=== PATIENT | male | born 1945 | race Caucasian/White ===

== ENCOUNTER 2016-11-24 10:06 | Observation (INO) | payer OTHER ==
[2016-11-24] MEDS ORDERED: ASPIRIN 81 MG CHEWABLE TAB ONE (10:16)
--- NOTE | 2016-11-24 10:17 | CPEKG ---
Heart Rate: 77 RR Interval: 779 P-R Interval: 212 QRSD Interval: 100 QT Interval: 408 QTC Interval: 462 P [place]: 53 QRS [place]: 5 T Wave [place]: 3 EKG Severity - BORDERLINE ECG - EKG Impression: SINUS RHYTHM EKG Impression: PROBABLE LEFT ATRIAL ABNORMALITY Electronically Signed By: Kay Rodriguez 24-Nov-2016 13:18:59
[2016-11-24] MEDS ORDERED: ASPIRIN 81 MG CHEWABLE TAB PO ONE (10:21)
[2016-11-24] MEDS ORDERED: NITROGLYCERIN 0.4 MG BTL SL ONE (10:24)
[2016-11-24 10:26] LABS: % IMMATURE GRANULYOCYTES 0.2 % (0.0-1.1); ABSOLUTE IMMATURE GRANULOCYTES 0.01 10^3/uL (0.00-0.10); ADD DIFF? NO; ADD MORPH? NO; ADD SCAN? NO; ATYPICAL LYMPHOCYTE FLAG 0 (0-99); FRAGMENT RBC FLAG 0 (0-99); HEMATOCRIT 48.1 % (40.0-51.0); HEMOGLOBIN 16.8 g/dL (13.7-17.5); LEFT SHIFT FLG 0 (0-99); LIPEMIA HEMOLYSIS FLAG 90 (0-99); MEAN CELL HEMOGLOBIN 29.9 pg (27.9-34.1); MEAN CELL HEMOGLOBIN CONCENTR. 34.9 g/dL (32.4-36.7); MEAN CELL VOLUME 85.6 fL (81.5-99.8); MEAN PLATELET VOLUME 9.1 fL (8.7-11.7); PLATELET CLUMPS FLAG 0 (0-99); PLATELET COUNT 199 10^3/uL (150-400); RED BLOOD CELL COUNT 5.62 10^6/uL (4.40-6.38); RED CELL DISTRIBUTION WIDTH 12.6 % (11.5-15.2)
[2016-11-24] MEDS: NITROGLYCERIN 0.4 MG BTL SL PRN ×3 (10:28→10:53)
[2016-11-24] MEDS ORDERED: FAMOTIDINE 20 MG in NS 100 ML IV ONE (10:29)
--- NOTE | 2016-11-24 10:35 | EDPHY ---
H & P Stated Complaint: 3 DAYS SUBSTRENAL CHEST BURNING OFF AN ON STARTING W ACTVITY Time Seen by Provider: 11/24/16 10:16 HPI/ROS: CHIEF COMPLAINT:Chest pain HISTORY OF PRESENT ILLNESS: this is a 71-year-old male with a history of hypertension who presents with 3 days of intermittent burning substernal chest pressure. He has noticed this while walking over the last 3 days. However, this morning the pain became constant. He is also complaining of left arm pain. He feels "hot". He does not feel short of breath. He has not had nausea. Four years ago he was evaluated after he failed an exercise treadmill test. At that time there was some concern about ventricular tachycardia. He worea patient monitor for a month and no cardiac arrhythmia was diagnosed. Coronary angiography was performed in January of 2013 and was reportedly normal ( per his ). He also wore a monitor after a syncopal episode about 2 years ago , again with no abnormalities discovered. REVIEW OF SYSTEMS: A ten point review of systems was performed and is negative with the exception of the items mentioned in the HPI. - Personal History Current Tetanus/Diphtheria Vaccine: Yes - Medical/Surgical History PMH: 1. Hypertension 2. Fibromyalgia, no medications 3. Sleep apnea, uses CPAP 4. Gout 5. Status post uvulectomy 6. 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 He is here with his . - Physical Exam Exam: General Appearance: Alert. Vital signs reviewed. Blood pressure 190/101 on arrival. Eyes: Pupils equal and round, no conjunctival injection, no discharge. Anicteric. ENT, Mouth: Mucous membranes are moist, no oropharyngeal erythema or edema. Neck: No lymphadenopathy, supple. Respiratory: Lungs are clear to auscultation; no wheezes, rales, or rhonchi. Cardiovascular: Regular rate and rhythm; no murmur, rub, or gallop. Gastrointestinal: Abdomen is soft and nontender, no masses or organomegaly, bowel sounds normal. Skin: Warm and dry, no rashes on exposed skin, normal color. Back: Nontender to palpation over the thoracolumbar spine. No CVAT. Extremities: No lower extremity edema, no calf tenderness or swelling. Neurological: Alert and oriented. Moving all four extremities easily and equally. Psychiatric: Normal affect. Constitutional: Initial Vital Signs Temperature (C) 36.5 C 11/24/16 10:15 Heart Rate 79 11/24/16 10:15 Respiratory Rate 18 11/24/16 10:15 Blood Pressure 190/101 H 11/24/16 10:15 O2 Sat (%) 92 11/24/16 10:15 O2 Delivery Mode Nasal Cannula O2 (L/minute) 2 Allergies/Adverse Reactions: No Known Allergies Allergy (Verified 11/24/16 10:15) Home Medications: Medication Instructions Recorded ASPIRIN 11/24/16 Aller Alex 11/24/16 Amlodipine Besylate 11/24/16 Colchicine 11/24/16 Fish Oil 11/24/16 KLONOPIN 11/24/16 Levothyroxine 11/24/16 Losartan Potassium 11/24/16 Multivitamin 11/24/16 Medical Decision Making - Diagnostics EKG Interpretation: 12 lead EKG is interpreted in Trace master View by emergency department physician. Repeat 12 lead EKG interpreted by me. No acute ischemic changes. Sinus rhythm. Imaging Results: Imaging Impressions Chest X-Ray 11/24/16 10:28 Impression: Right thoracic inlet mass. Consider chest CT with IV contrast for further evaluation. Results discussed with Dr. Rodriguez at 11:28 AM. ED Course/Re-evaluation: 71-year-old male with history of hypertension who presents with substernal chest pain and left arm pain. He is hypertensive on arrival. EKG performed immediately on his arrival. It shows a sinus rhythm with a rate of 77. There is prep some mild ST depression in leads V3 through V5. he was given aspirin on arrival. He received sublingual nitroglycerin with some improvement in his pain. He rated his pain is an 8/10 on arrival, 6/10 after aspirin and 1 sublingual nitroglycerin. Blood pressure was improved after nitroglycerin. Labs and chest x-ray pending. Troponin slightly elevated at 0.04. I reviewed the report of his coronary angiogram from 2012. He did have diffuse plaques at that time. No intervention. He has been regularly examined while in the emergency department. After 3 sublingual nitroglycerin he rates his chest pain is a 4 to 5/10. He states that he feels weak. blood pressure 127/76 at 11:00 a.m. I spoke with Dr. Travis Pompa of Cardiology. Cardiac catheterization is recommended. Dr. Pompa has asked that the hospitalists be the admitting service and I have spoken with the hospitalist service. Patient is being transferred by ambulance from [facility] to [facility]. A bed request for the PCU has been made. He will either go directly to CV or to his hospital bed prior to cardiac catheterization. I have discussed these plans with the patient and his . A 2nd EKG was obtained at 11:05 a.m.. Sinus rhythm with a rate of 68. No acute ischemic changes. I was contacted by Dr. José Vance, radiology, who reports a right thoracic inlet mass seen on chest x-ray. CT angiogram recommended. I am proceeding with CT angiogram at [facility] in order to further assess this chest x-ray finding. It is important to know whether not this is aneurysmal/vascular. CT angiogram is been completed at 11:50 a.m.. Awaiting report of CTA prior to ambulance transfer. Paramedics are present in the emergency department at this time. The patient remains unchanged. 12 15: Preliminary CT angiogram report from Dr. Vance via telephone. He sees triple-vessel coronary disease. There is some thinning of the lateral wall of the left ventricle, causing him to question whether there might be a subendocardial infarct. There is no effusion , no pulmonary embolus. The mass that was seen on chest x-ray is related to a tortuous subclavian vessel. There is no aortic aneurysm or dissection. The patient is being transferred to [facility]. He is in unchanged condition. His blood pressure and heart rate have been stable. He continues to complain of upper extremity weakness and some chest discomfort. It is my impression that his pain is cardiac, evidence of an acute coronary syndrome. Differential Diagnosis: Chest pain including but not limited to myocardial ischemia, pulmonary embolus, chest wall pain, pleural inflammation and pulmonary infectious causes. - Data Points Laboratory Results: Laboratory Results 11/24/16 10:15 11/24/16 10:15 11/24/16 11/24/16 10:15 10:15 WBC 5.39 10^3/uL 10^3/uL (3.80-9.50) RBC 5.62 10^6/uL 10^6/uL (4.40-6.38) Hgb 16.8 g/dL g/dL (13.7-17.5) Hct 48.1 % % (40.0-51.0) MCV 85.6 fL fL (81.5-99.8) MCH 29.9 pg pg (27.9-34.1) MCHC 34.9 g/dL g/dL (32.4-36.7) RDW 12.6 % % (11.5-15.2) Plt Count 199 10^3/uL 10^3/uL (150-400) MPV 9.1 fL fL (8.7-11.7) Neut % (Auto) 56.5 % % (39.3-74.2) Lymph % (Auto) 30.1 % % (15.0-45.0) [place] % (Auto) 9.5 % % (4.5-13.0) Eos % (Auto) 2.8 % % (0.6-7.6) Baso % (Auto) 0.9 % % (0.3-1.7) Nucleat RBC Rel Count 0.0 % % (0.0-0.2) Absolute Neuts (auto) 3.05 10^3/uL 10^3/uL (1.70-6.50) Absolute Lymphs (auto) 1.62 10^3/uL 10^3/uL (1.00-3.00) Absolute Monos (auto) 0.51 10^3/uL 10^3/uL (0.30-0.80) Absolute Eos (auto) 0.15 10^3/uL 10^3/uL (0.03-0.40) Absolute Basos (auto) 0.05 10^3/uL 10^3/uL (0.02-0.10) Absolute Nucleated RBC 0.00 10^3/uL 10^3/uL (0-0.01) Immature Gran % 0.2 % % (0.0-1.1) Immature Gran # 0.01 10^3/uL 10^3/uL (0.00-0.10) Sodium 142 mEq/L mEq/L (134-144) Potassium 3.9 mEq/L mEq/L (3.5-5.2) Chloride 103 mEq/L mEq/L (97-110) Carbon Dioxide 23 mEq/l mEq/l (22-31) Anion Gap 16 mEq/L mEq/L (8-16) BUN 15 mg/dL mg/dL (7-23) Creatinine 0.7 mg/dL mg/dL (0.7-1.3) Estimated GFR > 60 Glucose 107 mg/dL H mg/dL (70-100) Calcium 9.1 mg/dL mg/dL (8.5-10.4) Total Bilirubin 0.5 mg/dL mg/dL (0.1-1.4) AST 35 IU/L IU/L (17-59) ALT 57 IU/L IU/L (21-72) Alkaline Phosphatase 67 IU/L IU/L (38-126) Troponin I 0.046 ng/mL H ng/mL (0-0.034) Total Protein 7.9 g/dL g/dL (6.3-8.2) Albumin 4.7 g/dL g/dL (3.5-5.0) Medications Given: Discontinued Medications Aspirin (Aspirin) 324 mg PO EDNOW ONE Stop: 11/24/16 10:22 Last Admin: 11/24/16 10:22 Dose: 324 mg Famotidine 20 mg/ Sodium (Chloride) 102 mls @ 408 mls/hr IV EDNOW ONE Stop: 11/24/16 10:43 Last Admin: 11/24/16 10:35 Dose: 102 mls Departure - Departure Disposition: [facility] Inpatient Acute Clinical Impression: Acute coronary syndrome Chest pain Qualifiers: Chest pain type: chest pain due to myocardial ischemia Ischemic chest pain type : unstable angina pectoris Qualified Code(s): I20.0 - Unstable angina Condition: Fair
[2016-11-24 10:44] LABS: ALANINE AMINOTRANSFERASE 57 IU/L (21-72); ALBUMIN 4.7 g/dL (3.5-5.0); ALKALINE PHOSPHATASE 67 IU/L (38-126); ASPARTATE AMINOTRANSFERASE 35 IU/L (17-59); BILIRUBIN,TOTAL 0.5 mg/dL (0.1-1.4); CALCIUM 9.1 mg/dL (8.5-10.4); CARBON DIOXIDE 23 mEq/l (22-31); CHLORIDE 103 mEq/L (97-110); CREATININE 0.7 mg/dL (0.7-1.3); GLOMERULAR FILTRATION RATE > 60; GLUCOSE 107 mg/dL (70-100); POTASSIUM 3.9 mEq/L (3.5-5.2); TOTAL PROTEIN 7.9 g/dL (6.3-8.2)
[2016-11-24 10:55] LABS: TROPONIN I 0.046 ng/mL (0-0.034)
--- NOTE | 2016-11-24 11:07 | CPEKG ---
Heart Rate: 68 RR Interval: 882 P-R Interval: 216 QRSD Interval: 98 QT Interval: 420 QTC Interval: 447 P [place]: 45 QRS [place]: -4 T Wave [place]: 9 EKG Severity - NORMAL ECG - EKG Impression: SINUS RHYTHM Electronically Signed By: Kay Rodriguez 24-Nov-2016 13:18:50
[2016-11-24 11:09] LABS: ANION GAP 16 mEq/L (8-16); SODIUM 142 mEq/L (134-144)
[2016-11-24] MEDS ORDERED: IOPAMIDOL (ISOVUE 370) 100 ML BTL IV ONE (11:38)
[2016-11-24 13:38] LABS: INR 0.97 (0.83-1.16); PROTIME(PATIENT) 12.8 SEC (12.0-15.0)
[2016-11-24] MEDS ORDERED: LIDOCAINE 1% 300 MG/30 ML SDV ONE (14:01)
[2016-11-24] MEDS ORDERED: ACETAMINOPHEN 325 MG TAB PO PRN ×2 (14:01→14:16)
[2016-11-24] MEDS ORDERED: TEMAZEPAM 15 MG CAP PO PRN (14:01)
[2016-11-24] MEDS ORDERED: diphenhydrAMINE 25 MG CAP PO ONE (14:01)
[2016-11-24] MEDS ORDERED: ASPIRIN EC 325 MG TAB PO ONE (14:01)
[2016-11-24] MEDS ORDERED: DIAZEPAM 5 MG TAB PO ONE (14:01)
[2016-11-24] MEDS ORDERED: NITROGLYCERIN 0.4 MG BTL SL PRN (14:01)
[2016-11-24] MEDS ORDERED: IOPAMIDOL (ISOVUE-370) 150 ML BTL IV ONE ×2 (14:02→14:44)
[2016-11-24] MEDS ORDERED: fentaNYL 100 MCG/2 ML INJ ONE (14:02)
[2016-11-24] MEDS ORDERED: MIDAZOLAM 2 MG/2 ML VIAL ONE (14:02)
[2016-11-24] MEDS ORDERED: ONDANSETRON DISINTEGRATING 4 MG TAB PO PRN (14:16)
[2016-11-24] MEDS ORDERED: ONDANSETRON 4 MG/2 ML VIAL IVP PRN (14:16)
[2016-11-24 14:18] LABS: AMYLASE 40 IU/L (30-110)
[2016-11-24] MEDS ORDERED: clonazePAM 0.5 MG TAB PO PRN (14:18)
[2016-11-24] MEDS ORDERED: NS 1,000 ML IV SCH (14:30)
[2016-11-24] MEDS ORDERED: BIVALIRUDIN 250 MG/5 ML VIAL IV ONE (14:50)
[2016-11-24] MEDS ORDERED: NITROGLYCERIN 1,500 MCG/15 ML VIAL MISC ONE (14:50)
--- NOTE | 2016-11-24 14:51 | GHP ---
[f rep st] HISTORY AND PHYSICAL DATE OF ADMISSION: 11/24/2016 CHIEF COMPLAINT: Chest pain. HISTORY OF PRESENT ILLNESS: This is a 71-year-old male with a history of hypertension, who has had 3 days of chest pressure. This would come on with exertion, with walking. It did get better at res t, but then this morning had pain and it continued. He denied any shortness of breath. No nausea. He did feel hot today and had to go outside. No cough. He did have an angiogram about 4 years ago , which did not show any actionable blockages. REVIEW OF SYSTEMS: A 10-point review of systems was obtained, other than stated was negative. PAST MEDICAL HISTORY: 1. Hypertension. 2. Fibromyalgia. 3. Obstructive sleep apnea. 4. Gout. SOCIAL HISTORY: No smoking. Occasional alcohol. FAMILY HISTORY: Father of a heart attack at age 59. PHYSICAL EXAM: VITAL SIGNS: Afebrile, blood pressure is 156/84, heart rate 76, oxygen saturation 1 00% on 2 L. GENERAL: The patient is well developed, no apparent distress. HEENT: Nonicteric scle leonarda. Extraocular muscles intact. Moist mucous membranes. NECK: Supple. No thyromegaly. LUNGS: Good effort. Clear to auscultation bilaterally. CARDIOVASCULAR: Regular rate and rhythm. No mur murs, rubs, or gallops. ABDOMEN: Positive bowel sounds. Soft, nontender, nondistended. No hepato splenomegaly. EXTREMITIES: No clubbing, cyanosis, or edema. SKIN: Without rash. Warm, dry, and i ntact. NEUROLOGIC: Alert and oriented x3. Moving all 4 extremities equally PSYCH: Normal affect. LABS: CBC is normal. Coag's are normal. Troponin is elevated at 0.046, CT of the chest does show triple vessel disease. No PE. EKG personally reviewed and interpreted does show some ST-segment de pressions in V2 through V4, but they resolved an hour later. ASSESSMENT: This is a 71-year-old male presenting with probable acute coronary syndrome. PLAN: 1. Probable acute coronary syndrome. The patient is going to the lab assistant currently. We will see what they find. 2. Fibromyalgia. 3. Hypertension. We will continue his medicines for now. Perhaps amlodipine will be switched over to a beta cynthia if he indeed has coronary disease. 4. Admission. The patient will be admitted under observation status. Case discussed with the ER shirley bush. Old records reviewed and summarized in the HPI. EKG and chest x-ray personally reviewed and interpreted. /[id number]/MODL
--- NOTE | 2016-11-24 15:06 | GCON ---
[f rep st] CONSULTATION CARDIOVASCULAR CONSULTATION CHIEF COMPLAINT: Chest discomfort. HISTORY OF PRESENT ILLNESS: The patient is a gentleman I know well who comes in today now with anterior chest discomfort. It has been bothering him a great deal, and he is now here for further evaluation. Three days in a row when he was walking with his at a casual pace, he developed burning in the center of his chest. He also had another feeling that was a funny feeling in his chest. He called the office to get an appointment and was given an appointment with Dr. Perdue. Then what happened this morning at 4:30 in the morning, he woke and had significant burning in the chest, and it hurt in his left arm as well. It was 6/10 to 8/10. He was able to go back to sleep. An hour later he woke up with the pain being 6/10 as well. He wandered around the house. It was a real burning. It was bothering him. He had breakfast with his . He started feeling warm about 7:30 in the morning and then the pain got to be 10/10 , so he went to the [facility]. He did not have associated shortness of breath, sweaty feelings, palpitations, nausea, vomiting, diarrhea, or constipation. No pleuritic pain at all. He has not had fever, chills, or cough. He has not had upper respiratory tract symptoms of dysuria or frequency. He has not had dysuria or pain when he urinates or pain in the flank. He has a lifetime history of fibromyalgia, which is a muscular pain throughout his body. It is very bothersome. It hurts him a great deal. He has his fibromyalgia pains but that is different from this pain today. He has not had tearing pain. He has not had pressure or heaviness. He has not had pain radiating into his back. He has not had these kinds of pains before. He has a lot of other types of pains. In 2012, four years ago, he went 9 minutes on a treadmill and developed ventricular tachycardia. 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 He was followed up with Dr. Bertrand, his doctor, and then 2 years later had an episode where he fainted. They did Holter monitors many times and month-long monitors and never found anything abnormal, and he has not had any further syncope. Cardiac risk factors are positive for being overweight, having diabetes, hypertension, and dyslipidemia. He has a history of hyperuricemia. He also has a family history of premature coronary disease. His cardiac risk factors are negative for smoking. He does not have significant coronary disease on a catheterization 4 years ago, according to him. PAST MEDICAL HISTORY: He has significant sleep apnea. He has had surgery for that. He is using buds in his nose for that. He continues to snore very loudly if he takes a nap during the day. We do not know if he snores at night because he and his sleep in different locations. Surgical history includes also the rotator cuff surgery. He has had a cyst removed. He has had surgery for the sleep apnea. MEDICATIONS: At home: Aspirin, amlodipine, colchicine, Klonopin, levothyroxine , losartan, and multivitamins. ALLERGIES: Not listed. REVIEW OF SYSTEMS: Negative except as noted above a 12-point review of systems. FAMILY HISTORY: Family history is positive for premature coronary disease with a brother who had a myocardial infarction at 45. No family history of unexplained sudden at a young age. PHYSICAL EXAMINATION: VITAL SIGNS: Blood pressure 110/70, heart rate 66, respiratory rate 12. He is afebrile sitting comfortably in a hospital bed. HEENT: Pupils equal and reactive. Mucous membranes: Mouth moist. NECK: Supple. CARDIOVASCULAR: S1, S/. Soft systolic murmur left sternal border. No diastolic murmur. No S3, S4. No rubs. PULMONARY: Rhonchi. No rales, wheezing, or dullness. CVA: No tenderness. ABDOMEN: Soft, nontender without organomegaly. EXTREMITIES: No edema, inflammation, or ulceration. SKIN: Age- related changes. PSYCH: No obvious anxiety or depression. NEUROLOGIC: 2 through 12 grossly normal. Motor and sensory intact. IMAGING: The patient had an abnormal chest x-ray. He had then a CT scan done at the recommendation of our friends in Radiology. That CT scan was negative for a pulmonary embolism, aortic aneurysm, or dissection. Chest x-ray showed right thoracic inlet mass. Consider chest CT. EKG shows sinus rhythm with nonspecific ST-T changes. There are T-wave inversions in lead III. LAB: INR 0.97. White count 5.39, hematocrit 48, platelets 199. Sodium 142, potassium 3.9, chloride 103, CO2 of 23, BUN 15, creatinine 0.7, glucose 107. Troponin 0.046. Amylase and lipase negative ASSESSMENT AND PLAN: 1. Chest pain. The patient has significant chest discomfort worse with exertion, and now we are going to coronary angiography to look and see if he has obstructive disease causing these symptoms. I have offered him noninvasive testing, but he and his both want to have a definitive answer, and they know the risk of catheterization, and we will proceed to angiography. In terms of the differential diagnosis, there is nothing to suggest pulmonary embolic disease, and the CT scan did not show that. Nothing to suggest disease of the great vessels. Pulses are full and equal, and again, the CT scan did not show disease of the great vessels. He does have fibromyalgia. He has severe musculoskeletal symptoms and that could be contributing to some of his symptoms even if he has significant obstructive coronary disease. There is nothing to suggest major gastrointestinal pathology, and he does have negative amylase and lipase so far and does not have significant anemia, so there is nothing pointing toward significant pancreatitis or GI bleeding. We will watch him very closely and make sure that he gets over this hump, and then we will keep working on prevention. I have already talked to him extensively about some of his other problems and secondary prevention. 2. Sleep apnea. He needs to follow up on this and make sure he is getting the right treatment, and we have discussed this. 3. Dyslipidemia. We will follow his lipids and see how they are, but they will probably have to be managed as an outpatient. 4. Hyperuricemia. He is not having gout right this minute, but he is aware of it and watches it all the time. 5. Family history of premature coronary disease. 6. Obesity. He will have to watch carefully on his weight. 7. Hypertension. He came in hypertensive. We need to watch his blood pressure. We want his blood pressure to be below 135/85. I have answered all their questions. They would like to proceed now, and we will get our test done. /[id number]/MODL MTDD
[2016-11-24] MEDS ORDERED: CLOPIDOGREL BISULFATE 75 MG TAB ONE (15:14)
[2016-11-24] MEDS ORDERED: ATROPINE SULFATE 1 MG/10 ML SYR IVP PRN (15:39)
[2016-11-24] MEDS ORDERED: CLOPIDOGREL BISULFATE 75 MG TAB PO ONE (15:39)
--- NOTE | 2016-11-24 15:39 | PDCTREPORT ---
Cardiothoracic Procedure Rpt Cardiothoracic Procedure Report: Procedure: PCI and stenting of the ramus intermedius in the setting of a non ST segment elevation myocardial infarction. Indications: 71-year-old male brought to the cardiac catheterization lab by my partner for a non ST segment elevation myocardial infarction. Diagnostic angiograms reveal a thrombotic occlusion of ramus intermedius. I am asked by my partner to perform PCI. After reviewing diagnostic angiograms it was elected to proceed with emergency PCI. Patient was anticoagulated with Angiomax. Using a 6 Hebrew EBU 4 guiding catheter left main coronary was selectively intubated. Using a 0.014 luge wire with 2.0 mm balloon backup the occlusion was crossed and the wire placed in the distal vessel. A single inflation reestablished antegrade flow. It was elected to proceed with stenting. A 3.0 x 24 mm synergy stent was placed across the stenosis and deployed using a single inflation to 15 atmospheres. Repeat angiograms with BALDEV grade 3 flow. Conclusions: Non ST segment elevation myocardial infarction with occlusion of the ramus intermedius status post successful PCI and stenting. Plan: Aggressive secondary prevention clinical follow-up Patient Problems: Problems Problem Status Onset Status post insertion of drug eluting coronary artery stent Acute NSTEMI (non-ST elevated myocardial infarction) Acute Coronary artery disease Acute Acute coronary syndrome Acute Chest pain Acute
--- NOTE | 2016-11-24 15:54 | CPEKG ---
Heart Rate: 62 RR Interval: 968 P-R Interval: 224 QRSD Interval: 106 QT Interval: 448 QTC Interval: 455 P [place]: 53 QRS [place]: 46 T Wave [place]: 43 EKG Severity - ABNORMAL ECG - EKG Impression: SINUS RHYTHM EKG Impression: FIRST DEGREE AV BLOCK EKG Impression: PROBABLE LEFT ATRIAL ABNORMALITY Electronically Signed By: Jayro Pillai 24-Nov-2016 16:23:08
--- NOTE | 2016-11-24 16:07 | CPIP ---
[f rep st] INVASIVE CARDIAC PROCEDURE PROCEDURE: 1. Right and left coronary arteriogram. 2. Left ventriculogram. 3. Left heart catheterization. INDICATIONS: The patient has unstable angina, elevated troponin, and possible xnj-UN-aekmten-elevat ion myocardial infarction DESCRIPTION: The patient gave informed consent for the procedure. We went over the options and he wanted to proceed. He had no complications from the procedure. FINDINGS: 1. Angiography:. a. Left main coronary artery normal. b. Left anterior descending artery has intimal disease present. c. The ramus intermedius has 100% proximal occlusion with some [id number] collaterals. d. The circumflex coronary artery has intimal disease only. e. The right coronary artery is dominant and there is no obstructive disease present. 2. Left heart catheterization:. a. Left ventricular end-diastolic pressure 5 mmHg. b. No aortic stenosis. 3. Left ventriculogram:. a. Normal left ventricular systolic function. b. Normal left ventricular wall motion. c. No regional wall motion abnormalities. d. No severe mitral regurgitation. ASSESSMENT: 1. The patient has one-vessel severe coronary disease. Recommendation is for PCI consultation with Dr. Amando Napier. 2. Complications none. 3. Results have been discussed with the patient and with his . 4. All questions have been answered. /[id number]/MODL
[2016-11-24] MEDS: HYDROCODONE/APAP 5/325 TAB PO PRN ×2 (19:23→22:07)
[2016-11-24] MEDS: BISOPROLOL FUMARATE 5 MG TAB PO SCH (22:00)
[2016-11-25] MEDS: HYDROCODONE/APAP 5/325 TAB PO PRN (03:09)
[2016-11-25 04:22] VITALS: TEMP 97.9
[2016-11-25 04:59] LABS: % IMMATURE GRANULYOCYTES 0.4 % (0.0-1.1); ABSOLUTE IMMATURE GRANULOCYTES 0.03 10^3/uL (0.00-0.10); ADD DIFF? NO; ADD MORPH? NO; ADD SCAN? NO; ATYPICAL LYMPHOCYTE FLAG 0 (0-99); FRAGMENT RBC FLAG 0 (0-99); HEMATOCRIT 41.2 % (40.0-51.0); HEMOGLOBIN 14.1 g/dL (13.7-17.5); LEFT SHIFT FLG 0 (0-99); LIPEMIA HEMOLYSIS FLAG 90 (0-99); MEAN CELL HEMOGLOBIN CONCENTR. 34.2 g/dL (32.4-36.7); MEAN CELL VOLUME 87.7 fL (81.5-99.8); MEAN PLATELET VOLUME 9.5 fL (8.7-11.7); PLATELET CLUMPS FLAG 0 (0-99); PLATELET COUNT 188 10^3/uL (150-400); RED CELL DISTRIBUTION WIDTH 12.6 % (11.5-15.2)
[2016-11-25 05:18] LABS: ALANINE AMINOTRANSFERASE 64 IU/L (21-72); ALBUMIN 3.7 g/dL (3.5-5.0); ALKALINE PHOSPHATASE 52 IU/L (38-126); ANION GAP 11 mEq/L (8-16); ASPARTATE AMINOTRANSFERASE 201 IU/L (17-59); BILIRUBIN,TOTAL 0.6 mg/dL (0.1-1.4); CALCIUM 8.8 mg/dL (8.5-10.4); CARBON DIOXIDE 21 mEq/l (22-31); CHLORIDE 105 mEq/L (97-110); CHOLESTEROL 179 mg/dL (140-220); CHOLESTEROL/HDL RATIO 6.17 RATIO (1.00-4.97); CREATININE 0.8 mg/dL (0.7-1.3); GLOMERULAR FILTRATION RATE > 60; GLUCOSE 127 mg/dL (70-100); HIGH DENSITY LIPOPROTEIN 29 mg/dL (40-65); LACTATE DEHYDROGENASE 1163 IU/L (313-618); LOW DENSITY LIPOPROTEIN 113 mg/dL (80-100); MAGNESIUM 2.1 mg/dL (1.6-2.3); NON-HIGH DENSITY LIPOPROTEIN 150 mg/dL (90-129); POTASSIUM 3.8 mEq/L (3.5-5.2); SODIUM 137 mEq/L (134-144); TRIGLYCERIDE 187 mg/dL (40-150); VERY LOW DENSITY LIPOPROTEINS 37 mg/dL (8-25)
[2016-11-25] MEDS ORDERED: LEVOTHYROXINE 50 MCG TAB PO SCH (06:00)
[2016-11-25 08:18] VITALS: BP 129/77; PULSE 55; RESP 16; O2SAT 92
[2016-11-25] MEDS ORDERED: NON-FORMULARY NEW DRUG (Losartan Potassium [Losartan Potassium] 100 MG) PO SCH (09:00)
[2016-11-25] MEDS ORDERED: LOSARTAN POTASSIUM 50 MG TAB PO SCH (09:00)
[2016-11-25] MEDS ORDERED: CLOPIDOGREL BISULFATE 75 MG TAB PO SCH (09:00)
[2016-11-25] MEDS ORDERED: PRAVASTATIN SODIUM 20 MG TAB PO SCH (09:00)
[2016-11-25] MEDS ORDERED: ASPIRIN EC 81 MG TAB PO SCH (09:00)
--- NOTE | 2016-11-25 10:28 | GDS ---
[f rep st] DISCHARGE SUMMARY DISCHARGE DIAGNOSES: 1. Non ST-segment elevation myocardial infarction. 2. Hypertension. 3. Hyperlipidemia. 4. Gout. 5. Fibromyalgia. 6. Obstructive sleep apnea. HISTORY: A 71-year-old male who came in with several days of exertional chest pain. HOSPITAL COURSE: Patient's troponin's are slightly elevated. He did undergo a heart catheterizatio n which did show ramus intermedius with 100% occlusion. He then underwent stenting. He is doing we ll this following morning. He will be discharged home. DISPOSITION: Home. DISCHARGE MEDICATIONS: He is to resume his home medicines except for Norvasc which will be disconti nued. In addition, he will be given pravastatin, Plavix and bisoprolol. FOLLOWUP INSTRUCTIONS: He has an appointment with his manager intelligence, Dr. Perdue, in 1 week. Greater than 30 minutes spent. /[id number]/MODL
--- NOTE | 2016-11-25 11:08 | SOAPPROG ---
GEN Progress Note Assessment/Plan: Assessment: 11/25/2016 1. Coronary artery disease 2. n STEMI 3. Obesity 4. dyslipidemia 5. Stress came into the hospital with 3 days of chest discomfort. 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 Underwent successful stenting. He has normal wall motion. Tolerated the procedure well. He has no complications. He is now about doing well he is on his beta-cynthia his antiplatelet medication his statin and all his questions have been answered. The plan will be to increase his medications for maximal benefit for an acute coronary syndrome as an. He has an appointment with Dr. Perdue on this coming Sunday. I have talked to his yesterday extensively about both her problems and his problems and prevention and follow-up plans. I have not I have talked to him and answered all his questions today. We have reviewed extensively his diet and the plan for him to lose another 40 lb. Has a very specific diet that we have reviewed. 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 If he deteriorates in any way he will get back to us right away. He is having no complications from his procedure. This is the note of 11/25/2016 Plan: 11/25/16 11:05 Subjective: He is not having chest pain He is not having right groin pain He is not having fever chills nausea vomiting He has no pleuritic discomfort. He has lost 40 lb And he has gained the lb all back back because of the stress over the last 4 years. He is not having shortness of breath He is not having orthopnea PND or dyspnea on exertion He has not had any rashes. Objective: Vital Signs Temp Pulse Resp BP Pulse Ox 36.6 C 55 L 16 129/77 H 92 11/25/16 08:00 11/25/16 08:00 11/25/16 08:00 11/25/16 08:00 11/25/16 08:00 Laboratory Results 11/25/16 04:14 11/25/16 04:14 11/24/16 11/25/16 11/26/16 05:59 05:59 05:59 Intake Total 2640 Output Total 2200 Balance 440 PT 12.8 SEC (12.0-15.0) 11/24/16 13:18 INR 0.97 (0.83-1.16) 11/24/16 13:18 Physical Exam - Physical Exam General Appearance: alert, no apparent distress Neck: full range of motion Respiratory: rhonchi Cardiac/Chest: regular rate, rhythm, systolic murmur Abdomen: normal bowel sounds, non-tender, soft, No organomegaly Skin: warm/dry Neuro/Psych: no motor/sensory deficits, alert, normal mood/affect ICD10 Worksheet Patient Problems: Problems Problem Status Onset Acute coronary syndrome Acute Chest pain Acute Coronary artery disease Acute NSTEMI (non-ST elevated myocardial infarction) Acute Status post insertion of drug eluting coronary artery stent Acute
[2016-11-25] MEDS: BISOPROLOL FUMARATE 5 MG TAB PO SCH (11:13)
== END 2016-11-25 11:48 | disposition home or self-care (01) ==
LOC: CED 10:06 → CEDHOLD 11:12 → INTOOBSV 11:12 → F2W 12:49
PROVIDERS: ADMIT Internal Medicine; ATTEND Internal Medicine
PROC: 027034Z Dilation of Coronary Artery, One Artery with Drug-eluting Intraluminal Device, Percutaneous Approach (ICD-10-PCS; principal; 2016-11-24)
PROC: B2111ZZ Fluoroscopy of Multiple Coronary Arteries using Low Osmolar Contrast (ICD-10-PCS; 2016-11-24)
PROC: B2151ZZ Fluoroscopy of Left Heart using Low Osmolar Contrast (ICD-10-PCS; 2016-11-24)
PROC: 4A023N7 Measurement of Cardiac Sampling and Pressure, Left Heart, Percutaneous Approach (ICD-10-PCS; 2016-11-24)
DX: I21.4 Non-ST elevation (NSTEMI) myocardial infarction (principal); I25.10 Atherosclerotic heart disease of native coronary artery without angina pectoris; E11.9 Type 2 diabetes mellitus without complications; I10 Essential (primary) hypertension; E78.5 Hyperlipidemia, unspecified
CPT/HCPCS: 71020; 71275; 93005; 93458; 96374; 99285; C1725; C1760; C1769; C1874; C1887; C9600; G0378; J0583; J1644; J2250; J3010; Q9967; 80053-PO; 84484-PO; 85025-PO

== ENCOUNTER 2016-12-09 09:46 | Inpatient (IN) | payer OTHER ==
--- NOTE | 2016-12-09 09:59 | CPEKG ---
Heart Rate: 80 RR Interval: 750 P-R Interval: 220 QRSD Interval: 104 QT Interval: 420 QTC Interval: 485 P [place]: 57 QRS [place]: 9 T Wave [place]: 49 EKG Severity - ABNORMAL ECG - EKG Impression: SINUS RHYTHM EKG Impression: VENTRICULAR BIGEMINY EKG Impression: FIRST DEGREE AV BLOCK EKG Impression: PROBABLE LEFT ATRIAL ABNORMALITY Electronically Signed By: Lei Bertrand 09-Dec-2016 14:47:04
[2016-12-09] MEDS ORDERED: ASPIRIN 81 MG CHEWABLE TAB PO ONE (10:01)
[2016-12-09] MEDS ORDERED: NS 500 ML IV ONE (10:13)
[2016-12-09 10:19] LABS: % IMMATURE GRANULYOCYTES 0.2 % (0.0-1.1); ABSOLUTE IMMATURE GRANULOCYTES 0.01 10^3/uL (0.00-0.10); ADD DIFF? NO; ADD MORPH? NO; ADD SCAN? NO; ATYPICAL LYMPHOCYTE FLAG 0 (0-99); FRAGMENT RBC FLAG 0 (0-99); HEMATOCRIT 45.4 % (40.0-51.0); HEMOGLOBIN 15.6 g/dL (13.7-17.5); LEFT SHIFT FLG 0 (0-99); LIPEMIA HEMOLYSIS FLAG 90 (0-99); MEAN CELL HEMOGLOBIN 29.9 pg (27.9-34.1); MEAN CELL HEMOGLOBIN CONCENTR. 34.4 g/dL (32.4-36.7); MEAN PLATELET VOLUME 9.5 fL (8.7-11.7); PLATELET CLUMPS FLAG 0 (0-99); PLATELET COUNT 191 10^3/uL (150-400); RED BLOOD CELL COUNT 5.22 10^6/uL (4.40-6.38); RED CELL DISTRIBUTION WIDTH 12.7 % (11.5-15.2)
[2016-12-09 10:35] LABS: INR 1.03 (0.83-1.16); PROTIME(PATIENT) 13.2 SEC (12.0-15.0)
[2016-12-09 10:36] LABS: APTT 28.1 SEC (23.0-38.0)
[2016-12-09 10:38] LABS: ANION GAP 17 mEq/L (8-16); CALCIUM 9.1 mg/dL (8.5-10.4); CARBON DIOXIDE 23 mEq/l (22-31); CHLORIDE 105 mEq/L (97-110); CREATININE 0.9 mg/dL (0.7-1.3); GLOMERULAR FILTRATION RATE > 60; GLUCOSE 106 mg/dL (70-100); POTASSIUM 4.2 mEq/L (3.5-5.2); SODIUM 145 mEq/L (134-144)
[2016-12-09] MEDS ORDERED: NITROGLYCERIN 0.4 MG BTL SL ONE (11:01)
[2016-12-09] MEDS ORDERED: NITROGLYCERIN 2% 1 GM PACKET TP ONE (11:01)
--- NOTE | 2016-12-09 11:10 | EDPHY ---
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 Time Seen by Provider: 12/09/16 09:58 HPI/ROS: This patient complains of a "wobbly feeling in (his) heart." He explains that while walking mild half with his this morning he developed this symptom of extra beats in his heart associated with a feeling of generalized weakness and very subtle intermittent chest discomfort the substernal area -nonradiating less than 1/10 intensity. He admits that he has had similar "wobbly" feeling in his chest 2 to 3 times since the cardiac stent that typically resolve within tender 20 minutes without intervention. He has not had any chest pain prior to today since the cardiac stent. His anginal equivalent when he presented on November 24 was sharp burning chest pain with achy pain in his left arm. He has not had those symptoms today. He notes no other associated symptoms today. He is brought in by private vehicle by his . The patient's recent history is notable for cardiac catheterization with stent (to ramus intermedius without any other significant CAD) by Karthikeyan at [facility] on without complications with a non ST elevation CT at that time. He reports compliance with his medications that include Plavix, Losartan and bisprolol ( took them this am). ROS: Constitutional: No fevers. Mild fatigue as noted in HPI HEENT: No URI symptoms or other complaints Pulmonary: He has mild dyspnea over the past week but denies orthopnea. Cardiac: No paroxysmal nocturnal dyspnea. No leg swelling or calf pain. GI: No abdominal pain Endocrine: No diaphoresis : No symptoms Integumentary: No skin rash Complete ROS is otherwise negative Source: Patient Exam Limitations: No limitations - Medical/Surgical History Hx Asthma: No Hx Chronic Respiratory Disease: No Hx Diabetes: No Hx Cardiac Disease: Yes Hx Renal Disease: No Hx Cirrhosis: No Hx Alcoholism: No Hx HIV/AIDS: No Hx Splenectomy or Spleen Trauma: No Other PMH: SLEEP APNEA, HTN, UVULA SURGERY, fibromyalgia, R rotator cuff repair - Family History Significant Family History: No pertinent family hx - Social History Smoking Status: Never smoked Alcohol Use: Occasionally Drug Use: None - Physical Exam Exam: General Appearance: Alert, no distress. Eyes: Pupils equal and round no pallor or injection. ENT, Mouth: Mucous membranes moist. Respiratory: There are no retractions, lungs are clear to auscultation. Cardiovascular: Very early regular with occasional gallop or skipped beat. No murmur. No rub. No lower extremity edema or calf tenderness. Gastrointestinal: Abdomen is soft and nontender, no masses, bowel sounds normal. Neurological: GCS 15 with no focal deficits Skin: Warm and dry, no rashes. Musculoskeletal: Neck is supple nontender. Extremities are symmetrical, full range of motion. Psychiatric: Mildly anxious. Otherwise normal DIFFERENTIAL DIAGNOSIS: After history and physical exam differential diagnosis was considered for stent re- stenoses, coronary syndrome, primary ectopy with anxiety, GERD, rule out CT Constitutional: Initial Vital Signs Heart Rate 66 12/09/16 09:50 Respiratory Rate 18 12/09/16 09:50 Blood Pressure 147/90 H 12/09/16 09:50 O2 Sat (%) 94 12/09/16 09:50 O2 Delivery Mode Room Air Allergies/Adverse Reactions: No Known Allergies Allergy (Verified 12/09/16 10:03) Home Medications: Medication Instructions Recorded Aspirin EC [Aspirin EC 81 mg (*)] 81 mg PO DAILY 11/24/16 Cholecalciferol Vit D3 [Vitamin D3 2,000 units PO DAILY 11/24/16 (*)] Colchicine [Colchicine (*)] 0.6 - 1.2 mg PO DAILY PRN 11/24/16 Herbals/Supplements -Info Only 1 ea PO DAILY 11/24/16 Levothyroxine [Synthroid 50 mcg 50 mcg PO DAILY06 11/24/16 (*)] Losartan Potassium 100 mg PO DAILY 11/24/16 clonazePAM [Klonopin (*)] 0.25 - 0.5 mg PO DAILY PRN 11/24/16 Bisoprolol Fumarate [Zebeta (*)] 5 mg PO DAILY #30 tab 11/25/16 Clopidogrel Bisulfate [Plavix (*)] 75 mg PO DAILY #30 tab 11/25/16 Losartan Potassium [Cozaar 50 mg 100 mg PO DAILY #0 tab 11/25/16 (*)] Pravastatin Sodium [Pravachol] 20 mg PO DAILY #30 tab 11/25/16 Medical Decision Making - Diagnostics EKG Interpretation: 12 lead EKG performed shortly after arrival at 9:57 a.m. for palpitations reveals ventricular bigeminy Intervals are notable for prolonged OK at 2:20 a.m.. Other intervals are normal. [place]: Normal ST segments: Normal. Overall assessment ventricular bigeminy with first-degree AV block. Repeat EKG had after nitroglycerin for transient chest discomfort with relief- rule out interval change - at 11:20 a.m. Normal sinus rhythm at 65 Intervals: Normal throughout except for a prolonged OK at 2:20 a.m. Other intervals normal [place]: Normal ST segments: Normal Overall assessment sinus rhythm first-degree AV block, otherwise normal. Please refer to trace master for complete read. Imaging Results: Imaging Impressions Chest X-Ray 12/09/16 10:14 Impression: 1. No acute pulmonary disease. 2. Consider chest two views when the patient's medical condition permits. ED Course/Re-evaluation: IV, monitor Aspirin 324 Patient initially denied any chest discomfort. Shortly after 11:00 a.m. when I went to the bedside to discuss the patient's slightly elevated troponin, he reportedly had mild chest discomfort around 1/10 substernal location He is treated with 1 supple nitroglycerin and 0.5 inch nitropaste. Discussed case with Dr. Vinay Bertrand, on-call for Dr. Napier, and Dr. Bertrand agrees with plan for admission though requests hospitalist admission ( Cardiology consult). He wishes to add no other medications at this time. Patient had relief of chest discomfort with a nitroglycerin and remained stable on the monitor. He bounces between normal sinus rhythm and ventricular bigeminy At 11:15 a.m. I spoke with Elizabeth, the mid-level practitioner with the hospital service accepts patient for admission to Dr. Mcclain at [facility] PCU Patient is intermittently in bigeminy since his arrival here but otherwise stable. - Data Points Laboratory Results: Laboratory Results 12/09/16 10:05 12/09/16 10:05 12/09/16 12/09/16 12/09/16 10:05 10:05 10:05 WBC 5.04 10^3/uL 10^3/uL (3.80-9.50) RBC 5.22 10^6/uL 10^6/uL (4.40-6.38) Hgb 15.6 g/dL g/dL (13.7-17.5) Hct 45.4 % % (40.0-51.0) MCV 87.0 fL fL (81.5-99.8) MCH 29.9 pg pg (27.9-34.1) MCHC 34.4 g/dL g/dL (32.4-36.7) RDW 12.7 % % (11.5-15.2) Plt Count 191 10^3/uL 10^3/uL (150-400) MPV 9.5 fL fL (8.7-11.7) Neut % (Auto) 56.5 % % (39.3-74.2) Lymph % (Auto) 29.4 % % (15.0-45.0) [place] % (Auto) 8.7 % % (4.5-13.0) Eos % (Auto) 4.2 % % (0.6-7.6) Baso % (Auto) 1.0 % % (0.3-1.7) Nucleat RBC Rel Count 0.0 % % (0.0-0.2) Absolute Neuts (auto) 2.85 10^3/uL 10^3/uL (1.70-6.50) Absolute Lymphs (auto) 1.48 10^3/uL 10^3/uL (1.00-3.00) Absolute Monos (auto) 0.44 10^3/uL 10^3/uL (0.30-0.80) Absolute Eos (auto) 0.21 10^3/uL 10^3/uL (0.03-0.40) Absolute Basos (auto) 0.05 10^3/uL 10^3/uL (0.02-0.10) Absolute Nucleated RBC 0.00 10^3/uL 10^3/uL (0-0.01) Immature Gran % 0.2 % % (0.0-1.1) Immature Gran # 0.01 10^3/uL 10^3/uL (0.00-0.10) PT 13.2 SEC SEC (12.0-15.0) INR 1.03 (0.83-1.16) APTT 28.1 SEC SEC (23.0-38.0) Sodium 145 mEq/L H mEq/L (134-144) Potassium 4.2 mEq/L mEq/L (3.5-5.2) Chloride 105 mEq/L mEq/L (97-110) Carbon Dioxide 23 mEq/l mEq/l (22-31) Anion Gap 17 mEq/L H mEq/L (8-16) BUN 16 mg/dL mg/dL (7-23) Creatinine 0.9 mg/dL mg/dL (0.7-1.3) Estimated GFR > 60 Glucose 106 mg/dL H mg/dL (70-100) Calcium 9.1 mg/dL mg/dL (8.5-10.4) Troponin I 0.040 ng/mL H ng/mL (0-0.034) Medications Given: Discontinued Medications Aspirin (Aspirin) 324 mg PO EDNOW ONE Stop: 12/09/16 10:02 Last Admin: 12/09/16 10:03 Dose: 324 mg Sodium Chloride (Ns) 500 mls @ 0 mls/hr IV ONCE ONE; Wide Open PRN Reason: Protocol Stop: 12/09/16 10:14 Last Admin: 12/09/16 10:20 Dose: 500 mls Nitroglycerin (Nitro-Bid 2%) 0.5 inch TP EDNOW ONE Stop: 12/09/16 11:02 Last Admin: 12/09/16 11:04 Dose: 0.5 inch Nitroglycerin (Nitrostat) 0.4 mg SL EDNOW ONE Stop: 12/09/16 11:02 Last Admin: 12/09/16 11:03 Dose: 0.4 mg Departure - Departure Disposition: [facility] Inpatient Acute Clinical Impression: Ventricular bigeminy Chest pain Qualifiers: Chest pain type: precordial pain Qualified Code(s): R07.2 - Precordial pain Condition: Good Referrals: Vinay Bertrand MD [Primary Care Provider] - As per Instructions
--- NOTE | 2016-12-09 11:22 | CPEKG ---
Heart Rate: 65 RR Interval: 923 P-R Interval: 220 QRSD Interval: 102 QT Interval: 428 QTC Interval: 445 P [place]: 45 QRS [place]: 28 T Wave [place]: 48 EKG Severity - ABNORMAL ECG - EKG Impression: SINUS RHYTHM EKG Impression: FIRST DEGREE AV BLOCK EKG Impression: PROBABLE LEFT ATRIAL ABNORMALITY Electronically Signed By: Lei Bertrand 09-Dec-2016 14:46:48
[2016-12-09] MEDS ORDERED: TEMAZEPAM 15 MG CAP PO PRN (14:08)
[2016-12-09] MEDS ORDERED: PROMETHAZINE HCL 25 MG/ML INJ IVP PRN (14:08)
[2016-12-09] MEDS ORDERED: ACETAMINOPHEN 325 MG TAB PO PRN (14:08)
--- NOTE | 2016-12-09 14:44 | GHP ---
[f rep st] HISTORY AND PHYSICAL DATE OF ADMISSION: 12/09/2016 CHIEF COMPLAINT: Palpitations. HISTORY OF PRESENT ILLNESS: 71-year-old man who received a stent to his ramus intermedius on November 03, presents with palpitations. This started this morning, described as a sensation of his heart s wimming. He has no syncope. He previously had a burning chest pain radiating to his left arm, whic h prompted the stent. He has some possibly mild chest discomfort. He received nitroglycerin sublin gual as well as nitroglycerin paste in the ED, which made him feel much worse. He is unsure if that had any effect on the feeling in his chest. He notes no nausea, or vomiting. He has not had any s yncope. He has had a few episodes of this since his stent was placed, but this has been the most pr olonged. He reports compliance with his cardiac medications, specifically aspirin and Plavix. PAST MEDICAL/SURGICAL HISTORY: 1. Coronary artery disease, as above. 2. Hypertension. 3. Hyperlipidemia. 4. Fibromyalgia. 5. Obstructive sleep apnea. 6. Gout. MEDICATIONS: Please see medication reconciliation. ALLERGIES: None. SOCIAL HISTORY: No smoking. Occasional alcohol. FAMILY HISTORY: His father of a heart attack at age 59. REVIEW OF SYSTEMS: 10-point review of systems is conducted and is negative except per HPI. PHYSICAL EXAMINATION: VITAL SIGNS: Blood pressure 136/77, heart rate 67, respiration rate 21, satu rating 95% on 2 L, temperature is 35.6. GENERAL: Mr. Bowie is a very pleasant man who is resting comfortably, in no acute distress. HEENT: Shows him to be normocephalic, atraumatic. CARDIOVASCUL AR: Shows him to be irregularly irregular. There are no murmurs, rubs, or gallops. PULMONARY: Sh ows lungs clear to auscultation bilaterally. ABDOMEN: Soft, nontender, nondistended. SKIN: No ra sh. : No Gruber. NEUROLOGIC: Shows him to be alert and oriented x3. He is moving all extremiti es. PSYCHIATRIC: Exam shows normal mood and affect. LABS: CBC is normal. INR is 1. Sodium is 145, troponin 0.040. DATA: 1. I discussed with Dr. Bertrand. 2. I reviewed his ECG. This showed borderline 1st degree AV block. He has 5 PVCs in a bigeminal p attern here. EKG is nonischemic otherwise. 3. Chest x-ray, which I personally reviewed and interpreted shows normal-sized heart. Nothing acut e. IMPRESSION AND PLAN: This is a 71-year-old man who is having frequent PVCs with a recent stent plac ement. 1. Frequent PVCs: We will monitor on telemetry. We will trend his troponins. We will get an echo cardiogram. This is discussed with Dr. Bertrand who agrees and would not change any medications at this point. 2. Coronary artery disease with recent stent: We will continue all of his cardiac medications, inc luding aspirin, Plavix, bisoprolol and statin. He is having maybe some mild chest discomfort that d oes not really seem consistent with angina. We will trend his troponins. 3. Hypertension: Bisoprolol. 4. Mildly elevated troponins: Trend these; otherwise as above. 5. Code status: He would like to be full code. His is his MD RUFF. /[id number]/MODL
[2016-12-09] MEDS ORDERED: diphenhydrAMINE 25 MG CAP PO PRN (14:55)
[2016-12-09] MEDS ORDERED: COLCHICINE 0.6 MG CAP/TAB PO PRN (14:55)
[2016-12-09] MEDS ORDERED: MELATONIN 3 MG TAB PO PRN (14:55)
[2016-12-09] MEDS: LOSARTAN POTASSIUM 50 MG TAB PO SCH (21:26)
[2016-12-09] MEDS: PRAVASTATIN SODIUM 20 MG TAB PO SCH (21:26)
[2016-12-09] MEDS: clonazePAM 0.5 MG TAB PO PRN (21:27)
[2016-12-09] MEDS: ASPIRIN EC 81 MG TAB PO SCH (21:30)
[2016-12-10] MEDS: TEMAZEPAM 15 MG CAP PO PRN ×2 (00:36→22:01)
[2016-12-10] MEDS: oxyCODONE IR 5 MG TAB PO PRN ×2 (00:36→03:57)
[2016-12-10] MEDS: clonazePAM 0.5 MG TAB PO PRN ×2 (02:41→21:08)
[2016-12-10 07:42] LABS: % IMMATURE GRANULYOCYTES 0.2 % (0.0-1.1); ABSOLUTE IMMATURE GRANULOCYTES 0.01 10^3/uL (0.00-0.10); ADD DIFF? NO; ADD MORPH? NO; ADD SCAN? NO; ATYPICAL LYMPHOCYTE FLAG 0 (0-99); FRAGMENT RBC FLAG 0 (0-99); HEMATOCRIT 45.1 % (40.0-51.0); HEMOGLOBIN 15.3 g/dL (13.7-17.5); LEFT SHIFT FLG 0 (0-99); LIPEMIA HEMOLYSIS FLAG 90 (0-99); MEAN CELL HEMOGLOBIN 30.1 pg (27.9-34.1); MEAN CELL HEMOGLOBIN CONCENTR. 33.9 g/dL (32.4-36.7); MEAN CELL VOLUME 88.6 fL (81.5-99.8); MEAN PLATELET VOLUME 9.4 fL (8.7-11.7); PLATELET CLUMPS FLAG 0 (0-99); PLATELET COUNT 182 10^3/uL (150-400); RED BLOOD CELL COUNT 5.09 10^6/uL (4.40-6.38); RED CELL DISTRIBUTION WIDTH 12.6 % (11.5-15.2)
[2016-12-10 07:59] LABS: ANION GAP 12 mEq/L (8-16); CALCIUM 9.2 mg/dL (8.5-10.4); CARBON DIOXIDE 22 mEq/l (22-31); CHLORIDE 108 mEq/L (97-110); CREATININE 0.9 mg/dL (0.7-1.3); GLOMERULAR FILTRATION RATE > 60; GLUCOSE 96 mg/dL (70-100); POTASSIUM 4.3 mEq/L (3.5-5.2); SODIUM 142 mEq/L (134-144)
[2016-12-10] MEDS: CLOPIDOGREL BISULFATE 75 MG TAB PO SCH (08:58)
[2016-12-10] MEDS: OMEGA-3 FATTY ACIDS 1,000 MG CAP PO SCH (08:58)
[2016-12-10] MEDS: LEVOTHYROXINE 50 MCG TAB PO SCH (08:58)
[2016-12-10] MEDS: CHOLECALCIFEROL VIT D3 1,000 UNITS TAB PO SCH (08:58)
[2016-12-10] MEDS: BISOPROLOL FUMARATE 5 MG TAB PO SCH (08:59)
--- NOTE | 2016-12-10 09:11 | CPIP ---
[f rep st] INVASIVE CARDIAC PROCEDURE DATE OF PROCEDURE: 12/10/2016 CHIEF COMPLAINT: Palpitations. HISTORY OF PRESENT ILLNESS: The patient is a 71-year-old man developed chest pain, pressure and tig htness. Ultimately was evaluated and noted to have an occlusion of his ramus intermedius vessel. Sammie choudhury underwent successful balloon angioplasty and stent implantation of that vessel in late November, I jarad mead on November 24. He was out walking with his Marce, who is also a cardiac patient of mine, an d noticed he was not feeling quite right and did not have as much energy as he would have liked. He ultimately took his blood pressure and the pulse ox and noticed that his pulse rate was as slow as 33 with a blood pressure of 111 systolic. He felt somewhat weak, and although he did not have the b urning and severe chest pain that he had at the time of the heart attack, he did complain of a sensa tion of discomfort in his chest. He received nitroglycerin sublingually as well as with nitroglycer in paste in the emergency department, which made him feel much worse. He did not feel that it gave him any relief of the discomfort in his chest. He has not fainted, nearly fainted or had a sensation of rapid heartbeat. He does have a have occas ional sensation of a skipped heartbeat and a more powerful beat following that. He has not stopped taking his aspirin or Plavix and has been very conscientious and careful about taking his dual antip latelet therapy. PAST MEDICAL HISTORY: Significant for: 1. Coronary artery disease. Hypertension. 2. Dyslipidemia. 3. Fibromyalgia. 4. Obstructive sleep apnea. 5. Gout. ALLERGIES: He is not known to be allergic to medications. SOCIAL HISTORY: He lives with his , Marce. He has an occasional glass of wine but does not sm radha, abuse alcohol or illicit drugs. FAMILY HISTORY: Pertinent for the fact that his father of a heart attack at age 59. REVIEW OF SYSTEMS: A 10-point review of systems is negative except as otherwise noted in the HPI. PHYSICAL EXAMINATION: VITAL SIGNS: Blood pressure is elevated at 158/87, mean arterial pressure 11 0, pulse rate 56 with occasional extrasystoles. Oxygen saturation 93% on room air. Temperature 36. 6. NECK: No JVD or carotid bruits. Heart: Normal S1 and S2 with a murmur consistent with mitral regurgitation. LUNGS: Clear to auscultation bilaterally without wheezes, rales or rhonchi. ABDOME N: Benign and is nondistended and nontender. EXTREMITIES: Warm, dry, well perfused without signif icant peripheral edema. His EKG this morning reveals normal sinus rhythm without evidence of prior myocardial infarction. H is EKG on presentation revealed bigeminal PVCs, which is likely responsible for the patient's slow h eart rate. The EKG yesterday and today did not reveal evidence of ischemia or injury pattern. His chest x-ray revealed lungs that were clear, a somewhat tortuous thoracic aorta. His cardiac natanael houette is the upper limits of normal, but it does not appear that this was a good inspiratory effor t. There is no evidence of heart failure on the chest x-ray. MEDICATIONS: Aspirin 81 mg daily. Bisoprolol 5 mg daily. Klonopin 0.25 to 0.5 daily. Plavix 75 d aily. Colchicine 0.6 p.o. twice daily as needed for flare-ups of gout. Levothyroxine 50 mcg daily. Losartan 100 mg p.o. at bedtime. Melatonin 3 mg p.o. at bedtime as needed for sleep. 2000 mg of omega-3 fish oil. Oxycodone 5-10 mg p.o. q.3 hours as needed for pain, which was added by the hospi talist. CURRENT LABORATORY STUDIES: Reveal white count of 6.31, H and H of 15.3 and 45.1 with a platelet co unt of 182. Coags reveal PT/INR of 13.2 and 1.03. His troponin has trended at 0.04, 0.039 and 0.04 1, all of which is very stable and may in fact be residual effects of his stent and acute cardiac ev ent in late November. Sodium 142, potassium 4.3, chloride 108, CO2 of 22, BUN and creatinine of 15 and 0.9 with a calcium of 9.2. IMPRESSION AND PLAN: The patient presents with bigeminal PVCs resulting in a low pulse rate on his monitor, which prompted him to come to the emergency department because of a heart rate reading of 3 3. I explained to him that this was not his heart rate but in fact his pulse rate. Of course, bige fred PVCs and slow perfusing pulse rate are of concern but were likely causing the symptoms of miya cortez and not feeling quite right. I think it would be reasonable for him to be discharged today sin e he is not having an acute coronary event, and I would like for him to continue his medications. I think it would be prudent for us to double the dose of his Cozaar to 200 mg a day and arrange for a n outpatient nuclear stress test. He is not to exercise until his followup. He is to return prompt ly to the emergency department if he experiences palpitations, sensation of tachycardia, extra beats or other clinical symptoms of concern. Copy requested to: Primary Care Physician /[id number]/MODL
--- NOTE | 2016-12-10 10:36 | GDS ---
[f rep st] DISCHARGE SUMMARY DIAGNOSES: 1. Frequent premature ventricular complexes. 2. Recent percutaneous coronary intervention with stent to his ramus intermedius. 3. Mildly elevated troponin. 4. Hypertension. HOSPITAL COURSE: 71-year-old man, admitted after having had frequent PVCs. He had presented with c omplaints of fluctuating blood pressure, noticing that his pulse was going slow. Was monitored on t elemetry overnight, which showed the same. He had a mildly elevated troponin, which was flat at 0.0 4. He was seen by Cardiology, who recommends discharge, no exercise until gets an outpatient nuclea r stress test. He will arrange this tomorrow. He has been somewhat hypertensive since he has been here. His Cozaar was increased from 100 mg daily to 200 mg daily. Otherwise, he will continue taki ng his appropriate cardiac medications, including aspirin, Plavix, pravastatin, bisoprolol. Dischsavana pérez in stable condition. /[id number]/MODL
--- NOTE | 2016-12-10 12:02 | HOSPPROG ---
Hospitalist Progress Note Assessment/Plan: # frequent PVCs, recent PCI to ramus intermedius - will plan to keep overnight and get a nuc stress tomorrow as inpatient # CAD - cont bisoprolol, cozaar, pravastatin, plavic, asa # htn - increased cozaar today # dispo - inpatient; too high risk to discharge with outpatient f/u, needs inpatient stress Subjective: patient was going to be discharged but feels significant nausea which seems to correlate with his PVCs Objective: Vital Signs Temp Pulse Resp BP Pulse Ox 36.6 C 58 L 18 158/87 H 93 12/10/16 07:20 12/10/16 07:20 12/10/16 07:20 12/10/16 07:20 12/10/16 07:20 Laboratory Results 12/10/16 07:28 12/10/16 07:28 12/09/16 12/10/16 12/11/16 05:59 05:59 05:59 Intake Total 500 Output Total 180 Balance 320 PT 13.2 SEC (12.0-15.0) 12/09/16 10:05 INR 1.03 (0.83-1.16) 12/09/16 10:[address] Perdue - Time Spent With Patient Time Spent with Patient: greater than 35 minutes Time Spent with Patient: Greater than 35 minutes spent on this patients care, greater than 50% of time spent counseling, educating, and coordinating care regarding the above mentioned plan. - Physical Exam Constitutional: not in pain, uncomfortable ICD10 Worksheet Patient Problems: Problems Problem Status Onset Chest pain Acute Ventricular bigeminy Acute Status post insertion of drug eluting coronary artery stent Acute NSTEMI (non-ST elevated myocardial infarction) Acute Coronary artery disease Acute Acute coronary syndrome Acute Chest pain Acute
--- NOTE | 2016-12-10 12:17 | ECHO ---
[id number] + + [address] : : [place] [id number] : : [phone] + + Adult Echocardiographic Report + -------+ :Name: DEEPTI MARIN RStudy Date: 12/10/2016 08:14 AM : : Hospital Admission Number: [id number] Locati on: 209: :: 1945 Gender: Male Height: 73 in : :Age: 71 yrs Race: WH Weight: 233 lb : :Reason For Study: PVCs : : BSA: 2.3 meter s2 : :History: Recent stent : + -------+ MMode/2D Measurements \T\ Calculations LVIDd: 5.8 cm EDV(Teich): LA dimension: LVOT diam: 2.1 cm 169.2 ml 4.6 cm LVOT area: 3.4 cm2 LVLd ap4: 8.9 cm SV(MOD-sp4): EDV(MOD-sp4): 79.0 ml 127.0 ml LVLs ap4: 7.5 cm ESV(MOD-sp4): 48.0 ml EF(MOD-sp4): 62.2 % Normal Measurement Values: + + :LVIDd (3.5-5.7cm) IVSd (0.6-1.1cm) LVPWd (0.6-1.1cm) Aortic Root (2.0-3.7cm)Left Atrium (1.5-4.0cm): :LV Vol(d) (76-115ml) LV Vol(s) (29-48ml) Ejec Fraction (50-65%)PV Charly (0.6- 1.2m/s) TV Charly (0.4-1.0m/s) : :MV E Charly (0.8-1.0m/s)MV A Charly (0.3-1.0m/s)LVOT Charly (0.7-1.2m/s) Asc Ao Charly ( 0.9-1.8m/s) : + + Doppler Measurements \T\ Calculations MV E max charly: MV V2 mean: Ao V2 max: LV V1 max: 87.9 cm/sec 57.6 cm/sec 111.3 cm/sec 94.8 cm/sec MV A max charly: MV mean PG: Ao max PG: LV V1 max P.5 cm/sec 1.5 mmHg 5.0 mmHg 3.6 mmHg MV E/A: 1.1 MV V2 VTI: 31.2 cm Ao mean PG: LV V1 mean P.5 mmHg 2.0 mmHg MVA(VTI): 2.6 cm2 Ao V2 mean: LV V1 mean: 89.0 cm/sec 65.7 cm/sec Ao V2 VTI: 28.2 cm LV V1 VTI: 24.3 cm GODWIN(I,D): 2.9 cm2 GODWIN(V,D): 2.9 cm2 MR max charly: SV(LVOT): 82.3 ml 532.1 cm/sec MR max P.2 mmHg Left Ventricle The left ventricle is normal in size. There is normal left ventricular wall thickness. Left ventricular systolic function is normal. Ejection Fraction = 60-65%. Mild distal inferolateral hypokinesis. Right Ventricle The right ventricle is normal in size and function. Atria The left atrial size is normal. Right atrial size is normal. The interatrial septum is intact with no evidence for an atrial septal defect. Mitral Valve The mitral valve is normal in structure and function. There is no evidence of mitral valve prolapse. There is no mitral valve stenosis. There is moderate mitral regurgitation. Tricuspid Valve Normal tricuspid valve. Aortic Valve The aortic valve is trileaflet. The aortic valve opens well. There is no aortic stenosis. There is no aortic insufficiency. Pulmonic Valve The pulmonic valve is normal in structure and function. Trace pulmonic valvular regurgitation. Great Vessels The aortic root is normal size. Mildly dilated ascending aorta. Ascending aorta measures 4.2 cm. Pericardium/Pleural There is no pericardial effusion. Conclusion A complete two-dimensional transthoracic echocardiogram was performed (2D, M-mode, Doppler and color flow Doppler). Left ventricular systolic function is normal. Ejection Fraction = 60-65%. Mild distal inferolateral hypokinesis There is moderate mitral regurgitation. Trace pulmonic valvular regurgitation. Mildly dilated ascending aorta (4.2 cm) No prior echo Final Reading Physician: Dr Edith Buckner electronically signed on 12/10/2016 12:16 PM Ordering Physician: Sergio Mcclain Performed By: Ros Mujica RDCS
[2016-12-10] MEDS: ASPIRIN EC 81 MG TAB PO SCH (20:57)
[2016-12-10] MEDS: LOSARTAN POTASSIUM 50 MG TAB PO SCH (20:57)
[2016-12-10] MEDS: PRAVASTATIN SODIUM 20 MG TAB PO SCH (21:30)
[2016-12-11] MEDS: LEVOTHYROXINE 50 MCG TAB PO SCH (06:07)
[2016-12-11] MEDS: CLOPIDOGREL BISULFATE 75 MG TAB PO SCH (07:38)
[2016-12-11] MEDS: OMEGA-3 FATTY ACIDS 1,000 MG CAP PO SCH (07:39)
[2016-12-11] MEDS: CHOLECALCIFEROL VIT D3 1,000 UNITS TAB PO SCH (07:39)
[2016-12-11 09:06] VITALS: PULSE 69; RESP 20; TEMP 98.1; O2SAT 93
[2016-12-11] MEDS ORDERED: REGADENOSON 0.4 MG/5 ML SYR IVP ONE (09:27)
--- NOTE | 2016-12-11 10:57 | CPR ---
[f rep st] NONINVASIVE CARDIAC PROCEDURE REPORT PROCEDURE: Injection of Lexiscan MPI study. INDICATION FOR PROCEDURE: Known history of coronary artery disease, palpitations which have been sh own to be premature ventricular contractions. PRE: After obtaining informed consent ensuring patient's n.p.o. status of caffeine for greater than 12 hours, patient was placed on electrocardiogram. Initial EKG shows sinus rhythm, normal axis, no significant ST or T-wave abnormalities suggesting ischemia. Patient denies any chest pain, shortne ss of breath, or symptoms suggesting ischemia. Initial blood pressure was 154/76, saturation 91% on room air. INJECTION: Patient was given Lexiscan followed by slow IV push. Patient reporting initially a flus tyson sensation within a minute of injection but was noted to have occasional premature ventricular c ontraction but no other significant EKG changes. Patient within 5 minutes reporting symptoms all adams bsided. Again, reporting no chest pain, shortness of breath, or symptoms suggesting ischemia. EKG remained unchanged. Final blood pressure 152/68, saturation 95% on room air. IMPRESSION: 71-year-old male with noted history of previous percutaneous coronary intervention and coronary artery disease admitted for palpitations and noted to have premature ventricular contractio ns. Undergoing evaluation for possible further cardiac ischemia with Jennie MPI study. Patient repor ting no chest pain or pressure throughout the procedure, did report mild flushing which subsided wit hin 5 minutes of injection. Vital signs remained stable, no significant EKG changes during injectio n. Patient will finish post Jennie MPI imaging in Nuclear Medicine at this time. /[id number]/MODL
--- NOTE | 2016-12-11 11:39 | PDCARPN ---
Cardiology Progress Note Assessment/Plan: Coronary Artery Disease- recent PCI of ramus intermedius; mild CAD of other vessels; no chest pain; flat troponin trend. Lexiscan Nuc stress results pending. DAPT for 12 months. Secondary Prevention- discussed meds, heart healthy lifestyle choices, and followup/surveillance with the patient and his . Currently on an appropriate medical regimen. Expressed concerns that his new statin might be responsible for his gastrointestinal upset. LDL last month was 113; goal is <70. Consider PCSK9 inhibitor if cannot tolerate a a statin. Nausea- somewhat improved today. Will temporarily hold his pravastatin to see if this was the cause. I think that the combo of aspirin and clopidogrel is more likely the cause of his GI issues. Would start a PPI and continue while on DAPT. Premature Ventricular Contractions- these were responsible for the low heart rate reading on his pulse oximeter. Minimal PVCs on telemetry overnight. Continue beta cynthia. Disposition- should be okay for discharge this afternoon pending review of his nuclear stress test results. Notification sent to [facility] office staff through our EMR to contact him to arrange a followup appointment with Dr. Perdue. 12/11/16 11:37 Subjective: Nausea improved. Reviewed/Discussed With: family, hospitalist Objective: Vital Signs (8 Hrs) Temp Pulse Resp BP Pulse Ox 12/11/16 08:00 36.7 C 69 20 169/73 H 93 12/11/16 04:00 36.6 C 57 L 16 122/67 H 90 L Intake/Output (24 Hrs) 12/10/16 12/11/16 12/12/16 05:59 05:59 05:59 Intake Total 1400 Balance 1400 Intake: Oral (ml) 1400 Other: Number of Stools Toilet 1 Result Diagrams: 12/10/16 07:28 12/10/16 07:28 - Physical Exam Constitutional: WDWN, healthy appearing, no apparent distress Eyes: anicteric sclera Ears, Nose, Mouth, Throat: moist mucous membranes Cardiovascular: regular rate and rhythm, no murmurs, no rubs, no gallops Respiratory: clear to auscultate bilat Gastrointestinal: normoactive bowel sounds, no tenderness, no masses Skin: no rashes, no edema Neurologic: AAOx3 Psychiatric: not anxious ICD10 Worksheet Patient Problems: Problems Problem Status Onset Chest pain Acute Ventricular bigeminy Acute Acute coronary syndrome Acute Chest pain Acute Coronary artery disease Acute NSTEMI (non-ST elevated myocardial infarction) Acute Status post insertion of drug eluting coronary artery stent Acute
[2016-12-11] MEDS: BISOPROLOL FUMARATE 5 MG TAB PO SCH (12:11)
[2016-12-11 12:12] VITALS: BP 157/82
--- NOTE | 2016-12-11 14:18 | GDS ---
[f rep st] DISCHARGE SUMMARY DIAGNOSES: 1. Frequent premature ventricular contractions. 2. Recent percutaneous coronary intervention with stent to his ramus intermedius. 3. Mildly elevated troponin. 4. Hypertension. 5. Nausea. HOSPITAL COURSE: A 71-year-old man admitted with palpitations, found to have multiple frequent PVCs . He had a recent stent placed to his ramus intermedius. He had a mildly elevated troponin that wa s flat at 0.04. Seen by Cardiology. He underwent a nuclear stress test, which showed evidence of a n old infarct but no ischemia. This was consistent with his echocardiogram, which also showed mild inferolateral wall motion abnormality consistent with his known previous stent placement. He has had some ongoing nausea. Because of this, we will start a PPI as he is now on dual anti-plat elet therapy. He is also concerned that his pravastatin may be causing this, he wants to hold his p ravastatin for the time being. He will follow up with Dr. Perdue soon. He is discharged in stable condition. BILLING: I spent more than 30 minutes on the day of discharge coordinating care. /[id number]/MODL
== END 2016-12-11 14:35 | disposition home or self-care (01) | DRG 282 ==
LOC: CED 09:46 → CEDHOLD 11:15 → F2W 13:12 → OBSVTOIN 12-10 11:55
PROVIDERS: ADMIT Student in an Organized Health Care Education/Training Program; ATTEND Student in an Organized Health Care Education/Training Program
DX: I49.3 Ventricular premature depolarization (principal); I21.4 Non-ST elevation (NSTEMI) myocardial infarction; I10 Essential (primary) hypertension; G47.33 Obstructive sleep apnea (adult) (pediatric); E78.5 Hyperlipidemia, unspecified; I25.10 Atherosclerotic heart disease of native coronary artery without angina pectoris; Z95.5 Presence of coronary angioplasty implant and graft
CPT/HCPCS: 71010-PO; 80048-PO; 84484-PO; 85025-PO; 85610-PO; 85730-PO; A9500; G0378; J2785

== ENCOUNTER 2017-04-29 18:34 | Emergency (ER) | payer OTHER ==
[2017-04-29] MEDS ORDERED: ASPIRIN 81 MG CHEWABLE TAB PO ONE (18:42)
--- NOTE | 2017-04-29 18:42 | CPEKG ---
Heart Rate: 102 RR Interval: 588 P-R Interval: 200 QRSD Interval: 102 QT Interval: 332 QTC Interval: 433 P [place]: 63 QRS [place]: 6 T Wave [place]: 46 EKG Severity - ABNORMAL ECG - EKG Impression: SINUS TACHYCARDIA EKG Impression: VENTRICULAR BIGEMINY EKG Impression: PROBABLE LEFT ATRIAL ABNORMALITY Electronically Signed By: Kay Rodriguez 29-Apr-2017 18:45:39
[2017-04-29 18:56] LABS: % IMMATURE GRANULYOCYTES 0.2 % (0.0-1.1); ABSOLUTE IMMATURE GRANULOCYTES 0.01 10^3/uL (0.00-0.10); ADD DIFF? NO; ADD MORPH? NO; ADD SCAN? NO; ATYPICAL LYMPHOCYTE FLAG 0 (0-99); FRAGMENT RBC FLAG 0 (0-99); HEMATOCRIT 50.3 % (40.0-51.0); HEMOGLOBIN 17.6 g/dL (13.7-17.5); LEFT SHIFT FLG 0 (0-99); LIPEMIA HEMOLYSIS FLAG 90 (0-99); MEAN CELL HEMOGLOBIN 29.9 pg (27.9-34.1); MEAN CELL VOLUME 85.4 fL (81.5-99.8); MEAN PLATELET VOLUME 8.9 fL (8.7-11.7); PLATELET CLUMPS FLAG 0 (0-99); PLATELET COUNT 213 10^3/uL (150-400); RED BLOOD CELL COUNT 5.89 10^6/uL (4.40-6.38); RED CELL DISTRIBUTION WIDTH 12.8 % (11.5-15.2)
--- NOTE | 2017-04-29 19:04 | EDPHY ---
H & P Stated Complaint: Chest Pain Time Seen by Provider: 04/29/17 18:43 HPI/ROS: CHIEF COMPLAINT: High blood pressure, low heart rate HISTORY OF PRESENT ILLNESS: This is a 71-year-old male with known coronary artery disease status post stenting of the ramus intermedius November 24, 2016. He presents tonight after having what sounds like a presyncopal episode yesterday while in the grocery store. He felt faint but did not pass out. When he returned home he checked his blood pressure and had a systolic blood pressure in the 90s, quite unusual for him as he has a history of hypertension. He was started on Norvasc on April 23, 6 days ago. He is also taking Coreg, losartan, and Bisprolol. He was doing well today until this evening when he started to feel a fluttering of his heart this sensation, after having a low blood pressure yesterday, prompted him to check his blood pressure. He found his blood pressure to be elevated but noted that his heart rate was in the 30s. He has continued with sensation of fluttering or rapid heartbeat. He does not feel presyncopal. He denies chest pain. He has a history of PVCs and understands that PVCs might throw off the readings of his home blood pressure and pulse machine. However, as he became more more worried about his heart rate and his blood pressure he noticed that his blood pressure continued to climb. He spoke with the on-call trial lawyer and presents to the emergency department with these concerns. REVIEW OF SYSTEMS: A ten point review of systems was performed and is negative with the exception of the items mentioned in the HPI. Past medical history: 1. Coronary artery disease status post stenting of the ramus intermedius 2. Hypertension 3. Hyperlipidemia 4. Fibromyalgia lytes line 5. Obstructive sleep apnea 6. Gout Past surgical history: Cardiac catheterization Family history: His father at age 59 of a heart attack. Social history: He lives with his . He does not use tobacco products. He occasionally drinks alcohol. General Appearance: Alert. Vital signs reviewed. Initial blood pressure 217/ 92 with a repeat blood pressure of 207 over 84. Heart rate in the 80s. Room air pulse ox in the 90s. Eyes: Pupils equal and round, no conjunctival injection, no discharge. Anicteric. ENT, Mouth: Mucous membranes are moist, no oropharyngeal erythema or edema. Neck: No lymphadenopathy, supple. Respiratory: Lungs are clear to auscultation; no wheezes, rales, or rhonchi. Cardiovascular: Frequent PVCs in what sounds like a bigeminal rhythm; no murmur , rub, or gallop. Gastrointestinal: Abdomen is soft and nontender, no masses or organomegaly, bowel sounds normal. Skin: Warm and dry, no rashes on exposed skin, normal color. Back: Nontender to palpation over the thoracolumbar spine. No CVAT. Extremities: No lower extremity edema, no calf tenderness or swelling. Neurological: Alert and oriented. Moving all four extremities easily and equally. Psychiatric: Normal affect. - Medical/Surgical History Hx Asthma: No Hx Chronic Respiratory Disease: No Hx Diabetes: No Hx Cardiac Disease: Yes Hx Renal Disease: No Hx Cirrhosis: No Hx Alcoholism: No Hx HIV/AIDS: No Hx Splenectomy or Spleen Trauma: No Other PMH: SLEEP APNEA, HTN, UVULA SURGERY, fibromyalgia, R rotator cuff repair , [place] , stent (November 2016), cyst removal - Social History Smoking Status: Former smoker Constitutional: Initial Vital Signs Heart Rate 45 L 04/29/17 18:39 Respiratory Rate 24 H 04/29/17 18:39 Blood Pressure 217/92 H 04/29/17 18:39 O2 Sat (%) 95 04/29/17 18:39 O2 Delivery Mode Room Air Allergies/Adverse Reactions: No Known Allergies Allergy (Verified 04/29/17 18:42) Home Medications: Medication Instructions Recorded Aspirin EC [Aspirin EC 81 mg (*)] 81 mg PO HS 11/24/16 Cholecalciferol Vit D3 [Vitamin D3 2,000 units PO DAILY 11/24/16 (*)] Colchicine [Colchicine (*)] 0.6 - 1.2 mg PO DAILY PRN 11/24/16 Herbals/Supplements -Info Only 1 ea PO DAILY 11/24/16 Levothyroxine [Synthroid 50 mcg 50 mcg PO DAILY06 11/24/16 (*)] clonazePAM [Klonopin (*)] 0.25 - 0.5 mg PO DAILY PRN 11/24/16 Bisoprolol Fumarate [Zebeta (*)] 5 mg PO DAILY #30 tab 11/25/16 Clopidogrel Bisulfate [Plavix (*)] 75 mg PO DAILY #30 tab 11/25/16 Melatonin [Melatonin 3 MG (*)] 3 mg PO HS PRN 12/09/16 [place]-3 Fatty Acids [Fish Oil 1000 2,000 mg PO DAILY 12/09/16 mg (*)] diphenhydrAMINE [Benadryl 25 MG 25 mg PO HS PRN 12/09/16 (*)] Losartan Potassium [Cozaar 50 mg 100 mg PO HS tab 12/11/16 (*)] Omeprazole [Prilosec 20 mg] 20 mg PO DAILY #30 capsule. 12/11/16 Pantoprazole Sodium [Protonix 40mg 40 mg PO DAILY #30 tab 12/11/16 (*)] Norvasc 04/29/17 Medical Decision Making - Diagnostics EKG Interpretation: 12 lead EKG is interpreted in Trace master View by emergency department physician. Imaging Results: Imaging Impressions Chest X-Ray 04/29/17 18:46 Impression: Clear lungs. No acute process. ED Course/Re-evaluation: He received aspirin shortly after arrival in the emergency department. EKG shows ventricular bigeminy. He is hypertensive on arrival with a blood pressure of 207/84. He started Norvasc on April 23, 6 days ago. He also takes losartan, Coreg, and Bisprolol. He is not experiencing chest pain ( although he has fibromyalgia and states that he always has some pain, often in his chest and arms). 7:50 p.m.: He remains chest pain-free. He is now in a sinus rhythm without PVCs, but has been seen going in and out of ventricular bigeminy. Last blood pressure was 142/84. CBC and chemistries are normal. Chest x-ray NAPD. Troponin is pending. 8:30 PM: Troponin WNL. No pain. BP still elevated, but much improved from admission. I spoke with Dr. Mosqueda, cardiology, about brigette's work0-up. We both agree that admission is not needed at this time. Danger signs reviewed with patient and his . He will follow up with Dr. Perdue. He understands the importance of continuing to work on BP control with his physicians. Differential Diagnosis: Considered a differential diagnosis including but not limited to myocardial ischemia, ectopy/arrhythmia, pulmonary embolus, chest wall pain, pleural inflammation and pulmonary infectious causes. Syncope including but not limited to vasovagal syncope, arrhythmia, dehydration, and blood loss. - Data Points Laboratory Results: Laboratory Results 04/29/17 18:50 04/29/17 18:50 04/29/17 04/29/17 18:50 18:50 WBC 6.26 10^3/uL 10^3/uL (3.80-9.50) RBC 5.89 10^6/uL 10^6/uL (4.40-6.38) Hgb 17.6 g/dL H g/dL (13.7-17.5) Hct 50.3 % % (40.0-51.0) MCV 85.4 fL fL (81.5-99.8) MCH 29.9 pg pg (27.9-34.1) MCHC 35.0 g/dL g/dL (32.4-36.7) RDW 12.8 % % (11.5-15.2) Plt Count 213 10^3/uL 10^3/uL (150-400) MPV 8.9 fL fL (8.7-11.7) Neut % (Auto) 53.2 % % (39.3-74.2) Lymph % (Auto) 31.8 % % (15.0-45.0) Williamson % (Auto) 9.4 % % (4.5-13.0) Eos % (Auto) 4.3 % % (0.6-7.6) Baso % (Auto) 1.1 % % (0.3-1.7) Nucleat RBC Rel Count 0.0 % % (0.0-0.2) Absolute Neuts (auto) 3.33 10^3/uL 10^3/uL (1.70-6.50) Absolute Lymphs (auto) 1.99 10^3/uL 10^3/uL (1.00-3.00) Absolute Monos (auto) 0.59 10^3/uL 10^3/uL (0.30-0.80) Absolute Eos (auto) 0.27 10^3/uL 10^3/uL (0.03-0.40) Absolute Basos (auto) 0.07 10^3/uL 10^3/uL (0.02-0.10) Absolute Nucleated RBC 0.00 10^3/uL 10^3/uL (0-0.01) Immature Gran % 0.2 % % (0.0-1.1) Immature Gran # 0.01 10^3/uL 10^3/uL (0.00-0.10) Sodium 144 mEq/L mEq/L (134-144) Potassium 4.0 mEq/L mEq/L (3.5-5.2) Chloride 101 mEq/L mEq/L (97-110) Carbon Dioxide 23 mEq/l mEq/l (22-31) Anion Gap 20 mEq/L H mEq/L (8-16) BUN 16 mg/dL mg/dL (7-23) Creatinine 0.8 mg/dL mg/dL (0.7-1.3) Estimated GFR > 60 Glucose 108 mg/dL H mg/dL (70-100) Calcium 9.7 mg/dL mg/dL (8.5-10.4) Troponin I < 0.012 ng/mL ng/mL (0.000-0.034) Medications Given: Discontinued Medications Aspirin (Aspirin) 243 mg PO EDNOW ONE Stop: 04/29/17 18:43 Last Admin: 04/29/17 18:45 Dose: 243 mg Departure - Departure Disposition: Home, Routine, Self-Care Clinical Impression: PVCs (premature ventricular contractions) Hypertension Qualifiers: Hypertension type: essential hypertension Qualified Code(s): I10 - Essential ( primary) hypertension Condition: Good Instructions: Hypertension (ED), Premature Ventricular Contractions (ED) Additional Instructions: Call Dr. Perdue's office tomorrow to schedule a follow up appointment for this week. Return if you have fainting, low blood pressure, chest pain that is different from your usual fibromyalgia pain, trouble breathing, headache in the setting of high blood pressure, any new or concerning symptoms. Referrals: Car Perdue MD [Medical Doctor] - As per Instructions
[2017-04-29 19:07] LABS: ANION GAP 20 mEq/L (8-16); CALCIUM 9.7 mg/dL (8.5-10.4); CARBON DIOXIDE 23 mEq/l (22-31); CHLORIDE 101 mEq/L (97-110); CREATININE 0.8 mg/dL (0.7-1.3); GLOMERULAR FILTRATION RATE > 60; GLUCOSE 108 mg/dL (70-100); SODIUM 144 mEq/L (134-144)
[2017-04-29 20:15] LABS: TROPONIN I < 0.012 ng/mL (0.000-0.034)
[2017-04-29 21:08] VITALS: BP 158/66; PULSE 81; RESP 16; TEMP 98.1; O2SAT 94
== END 2017-04-29 21:04 | disposition home or self-care (01) ==
LOC: CED 18:34
DX: I49.3 Ventricular premature depolarization (principal); I10 Essential (primary) hypertension; I25.10 Atherosclerotic heart disease of native coronary artery without angina pectoris; I25.2 Old myocardial infarction; Z79.82 Long term (current) use of aspirin; Z87.891 Personal history of nicotine dependence; Z95.5 Presence of coronary angioplasty implant and graft
CPT/HCPCS: 71020-PO; 80048-PO; 84484-PO; 85025-PO

== ENCOUNTER 2018-04-14 16:46 | Emergency (ER) | payer OTHER ==
--- NOTE | 2018-04-14 16:59 | EDPHY ---
H & P Stated Complaint: heart palpitations and irregular heart beat today, sob yesterday Time Seen by Provider: 04/14/18 16:48 HPI/ROS: 72 yo M with hx of [place] with stent in November 2016. Presents today complaining of feeling an irregular heart beat intermittently for the last 4 days since a trip to [place], he felt his symptoms were markedly worse when stopping at the rest stop in [place](about 8500 feet) and once he got home last night had a good nights sleep, took all his regular medicines today but feels that his heart is irregular. He denies chest pain , diaphoresis, nausea, vomiting, shortness of breath today. He denies new medicines or a change in current medications. Source: Patient, Family Exam Limitations: No limitations - Personal History Current Tetanus Diphtheria and Acellular Pertussis (TDAP): Yes - Medical/Surgical History Hx Asthma: No Hx Chronic Respiratory Disease: No Hx Diabetes: No Hx Cardiac Disease: Yes Hx Renal Disease: No Hx Cirrhosis: No Hx Alcoholism: No Hx HIV/AIDS: No Hx Splenectomy or Spleen Trauma: No Other PMH: SLEEP APNEA, HTN, UVULA SURGERY, fibromyalgia, R rotator cuff repair , [place] , stent (November 2016), cyst removal - Family History Significant Family History: No pertinent family hx - Social History Smoking Status: Former smoker Alcohol Use: Rarely Drug Use: None - Physical Exam Exam: 72-year-old male alert and oriented no acute distress nontoxic appearance, afebrile HEENT atraumatic normocephalic, extraocular muscles intact, anicteric Oropharynx negative for erythema negative exudate, tolerating her own secretions Neck supple no meningismus Lungs clear to auscultation bilaterally Heart regular rate and rhythm without murmur rub or gallop Abdomen nondistended normoactive bowel sounds soft nontender Back no CVA tenderness, no step-offs, no spinal tenderness Extremities no cyanosis clubbing or edema No calf tenderness Neuro alert and oriented, no focal deficits Constitutional: Initial Vital Signs Temperature (C) 36.8 C 04/14/18 16:48 Heart Rate 75 04/14/18 16:48 Respiratory Rate 18 04/14/18 16:48 Blood Pressure 206/84 H 04/14/18 16:48 O2 Sat (%) 95 04/14/18 16:48 O2 Delivery Mode Room Air O2 (L/minute) 2 Allergies/Adverse Reactions: No Known Allergies Allergy (Verified 04/14/18 16:53) Home Medications: Medication Instructions Recorded Aspirin EC [Aspirin EC 81 mg (*)] 81 mg PO HS 11/24/16 Cholecalciferol Vit D3 [Vitamin D3 2,000 units PO DAILY 11/24/16 (*)] Colchicine [Colchicine (*)] 0.6 - 1.2 mg PO DAILY PRN 11/24/16 Herbals/Supplements -Info Only 1 ea PO DAILY 11/24/16 Levothyroxine [Synthroid 50 mcg 50 mcg PO DAILY06 11/24/16 (*)] clonazePAM [Klonopin (*)] 0.25 - 0.5 mg PO DAILY PRN 11/24/16 Melatonin [Melatonin 3 MG (*)] 3 mg PO HS PRN 12/09/16 [place]-3 Fatty Acids [Fish Oil 1000 2,000 mg PO DAILY 12/09/16 mg (*)] diphenhydrAMINE [Benadryl 25 MG 25 mg PO HS PRN 12/09/16 (*)] Losartan Potassium [Cozaar 50 mg 100 mg PO HS tab 12/11/16 (*)] Omeprazole [Prilosec 20 mg] 20 mg PO DAILY #30 capsule. 12/11/16 Coreg 04/14/18 Hydrochlorothiazide 04/14/18 Pravastatin Sodium 04/14/18 Medical Decision Making - Diagnostics EKG Interpretation: EKG at 4:52 p.m. Sinus rhythm with ventricular bigeminy rate 95 WI interval 200 QTC 413 EKG at 5:23 p.m. Normal sinus rhythm, rate 73 Imaging Results: Imaging Impressions Chest X-Ray 04/14/18 17:01 Impression: No acute abnormality, or substantial change from 04/29/2017. ED Course/Re-evaluation: Patient seen and evaluated for palpitations.. ekg initial one with bigeminy 2nd ekg in nsr pt monitored for several hours and intermittently in nsr, and bigeminy to quadrigeminy labs sent dimer neg trop neg cbc wnl electrolytes wnl magnesium 2.4 tsh wnl cxr at pts baseline Pt given 500 cc normal saline. Imp Freqeunt pvcs Plan Pt to go home feeling improved, more consistently in sinus rhythm. 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 Differential Diagnosis: Differential diagnosis considered but not limited to: Myocardial infarction, pulmonary embolus, arrhythmia, supraventricular tachycardia, pneumonia, electrolyte abnormality, hyperthyroidism - Data Points Laboratory Results: 04/14/18 04/14/18 04/14/18 17:02 17:02 16:55 POC Sodium 145 mEq/L mEq/L (135-145) POC Potassium 3.5 mEq/L mEq/L (3.3-5.0) POC Chloride 102.0 mEq/L mEq/L (97-110) POC Total CO2 27 mEq/L mEq/L (22-31) POC BUN 15 mg/dL mg/dL (7-23) POC Creatinine 1.0 mg/dL mg/dL (0.7-1.3) POC Glucose 111 mg/dL H mg/dL (70-100) POC Calcium 9.1 mg/dL mg/dL (8.5-10.4) Magnesium 2.4 mg/dL H mg/dL (1.6-2.3) POC Total Bilirubin 0.6 mg/dL mg/dL (0.1-1.4) POC AST 35 IU/L IU/L (17-59) POC ALT 44 IU/L IU/L (21-72) POC Alk Phosphatase 69 IU/L IU/L (38-126) POC Troponin I 0.00 ng/mL ng/mL (0.00-0.08) NT-Pro-B Natriuret Pep 453 pg/mL H pg/mL (0-125) POC Total Protein 7.5 g/dL g/dL (6.3-8.2) POC Albumin 4.0 g/dL g/dL (3.5-5.0) TSH 3.200 uIU/mL uIU/mL (0.465-4.680) Free T4 1.07 ng/dL ng/dL (0.59-2.19) Medications Given: Discontinued Medications Sodium Chloride (Ns) 1,000 mls @ 0 mls/hr IV ONCE ONE PRN Reason: As Directed Stop: 04/14/18 18:21 Last Admin: 04/14/18 18:29 Dose: 1,000 mls Point of Care Test Results: CBC CBC Collection Date 04/14/18 CBC Collection Time 16:55 WBC 5.7 RBC 5.54 HGB 16.9 HCT 47.6 PLT 235 Neut # 3.2 Neut 55.4 LYMPH # 2.1 LYMPH 37.4 Other WBC # 0.4 Other WBC 7.2 MCV 85.9 Chemistry 04/14/18 04/14/18 17:02 17:02 POC Sodium 145 mEq/L mEq/L (135-145) POC Potassium 3.5 mEq/L mEq/L (3.3-5.0) POC Chloride 102.0 mEq/L mEq/L (97-110) POC Total CO2 27 mEq/L mEq/L (22-31) POC BUN 15 mg/dL mg/dL (7-23) POC Creatinine 1.0 mg/dL mg/dL (0.7-1.3) POC Glucose 111 mg/dL H mg/dL (70-100) POC Calcium 9.1 mg/dL mg/dL (8.5-10.4) POC Total Bilirubin 0.6 mg/dL mg/dL (0.1-1.4) POC AST 35 IU/L IU/L (17-59) POC ALT 44 IU/L IU/L (21-72) POC Alk Phosphatase 69 IU/L IU/L (38-126) POC Troponin I 0.00 ng/mL ng/mL (0.00-0.08) POC Total Protein 7.5 g/dL g/dL (6.3-8.2) POC Albumin 4.0 g/dL g/dL (3.5-5.0) D-Dimer D-Dimer Collection Date 04/14/18 D-Dimer Collection Time 17:15 D-Dimer (ng/ml) 294 Urine Dip Collection Date 04/14/18 Collection Time 17:30 Specific [place] (1.002-1.030) 1.015 PH (5.0-7.5) 7.0 Leukocytes (Negative) Negative Nitrites (Negative) Negative Protein (Negative) 1+ Glucose (Negative) Negative Ketones (Negative) Negative Urobilnogen (0.2-1.0 EU) 0.2 Bilirubin (Negative) Negative Blood (Negative) Trace Departure - Departure Disposition: Home, Routine, Self-Care Clinical Impression: Frequent PVCs Condition: Good Instructions: Premature Ventricular Contractions (ED) Additional Instructions: Call your instructional design manager on Sunday to see if you can arrange close follow up> Return to Emergency if you are having chest pain, shortness of breath, rapid heart rate. Referrals: Jean-Paul Hernandez MD [Primary Care Provider] - As per Instructions
[2018-04-14] MEDS ORDERED: NS 1,000 ML IV ONE (18:20)
[2018-04-14 19:41] VITALS: BP 162/94
== END 2018-04-14 19:37 | disposition home or self-care (01) ==
LOC: CED 16:46
DX: I49.3 Ventricular premature depolarization (principal)
CPT/HCPCS: 71046-PO; 80053-PO; 84484-PO

== ENCOUNTER 2018-04-16 10:44 | Observation (INO) | payer OTHER ==
--- NOTE | 2018-04-16 11:04 | EDPHY ---
H & P Stated Complaint: throbbing pressure in head x 4 days/sob/bradycardia Time Seen by Provider: 04/16/18 10:56 HPI/ROS: CHIEF COMPLAINT: Dyspnea, headache, palpitations HISTORY OF PRESENT ILLNESS: The patient is referred to the ED for evaluation of dyspnea, palpitations and headache. The patient's symptoms have been occurring intermittently over the past 4 days. The patient was seen in the cardiology clinic today and referred to the ED for further evaluation. The patient reports he had been having bradycardia over the weekend. The patient does have a history of acute coronary syndrome requiring stenting in 2017. The patient is on a number of medications for high blood pressure including carvedilol, hydrochlorothiazide and losartan. REVIEW OF SYSTEMS: A comprehensive 10 point review of systems is otherwise negative aside from elements mentioned in the history of present illness. Source: Patient Exam Limitations: No limitations - Personal History Current Tetanus Diphtheria and Acellular Pertussis (TDAP): No - Medical/Surgical History Hx Asthma: No Hx Chronic Respiratory Disease: No Hx Diabetes: No Hx Cardiac Disease: Yes Hx Renal Disease: No Hx Cirrhosis: No Hx Alcoholism: No Hx HIV/AIDS: No Hx Splenectomy or Spleen Trauma: No Other PMH: SLEEP APNEA, HTN, UVULA SURGERY, fibromyalgia, R rotator cuff repair , [place] , stent (November 2016), cyst removal - Social History Smoking Status: Former smoker - Physical Exam Exam: General Appearance: Alert, no distress Eyes: Pupils equal and round no pallor or injection ENT, Mouth: Mucous membranes moist Respiratory: There are no retractions, lungs are clear to auscultation Cardiovascular: Regularly, irregular rate Gastrointestinal: Abdomen is soft and nontender, no masses, bowel sounds normal Neurological: 5/5 strength noted all 4 extremities Skin: Warm and dry, no rashes Musculoskeletal: Neck is supple nontender Extremities: symmetrical, full range of motion Constitutional: Initial Vital Signs Temperature (C) 36.6 C 04/16/18 10:50 Heart Rate 50 L 04/16/18 10:50 Respiratory Rate 18 04/16/18 10:50 Blood Pressure 180/96 H 04/16/18 10:50 O2 Sat (%) 95 04/16/18 10:50 O2 Delivery Mode Room Air Allergies/Adverse Reactions: No Known Allergies Allergy (Verified 04/16/18 10:48) Home Medications: Medication Instructions Recorded Aspirin EC [Aspirin EC 81 mg (*)] 81 mg PO HS 11/24/16 Cholecalciferol Vit D3 [Vitamin D3 2,000 units PO DAILY 11/24/16 (*)] Colchicine [Colchicine (*)] 0.6 - 1.2 mg PO DAILY PRN 11/24/16 Herbals/Supplements -Info Only 1 ea PO DAILY 11/24/16 Levothyroxine [Synthroid 50 mcg 50 mcg PO DAILY06 11/24/16 (*)] clonazePAM [Klonopin (*)] 0.25 - 0.5 mg PO DAILY PRN 11/24/16 Melatonin [Melatonin 3 MG (*)] 3 mg PO HS PRN 12/09/16 [place]-3 Fatty Acids [Fish Oil 1000 2,000 mg PO DAILY 12/09/16 mg (*)] diphenhydrAMINE [Benadryl 25 MG 25 mg PO HS PRN 12/09/16 (*)] Losartan Potassium [Cozaar 50 mg 100 mg PO HS tab 12/11/16 (*)] Omeprazole [Prilosec 20 mg] 20 mg PO DAILY #30 capsule. 12/11/16 Coreg 04/14/18 Hydrochlorothiazide 04/14/18 Pravastatin Sodium 04/14/18 Medical Decision Making - Diagnostics EKG Interpretation: EKG: Complete interpretation has been separately recorded in the [facility] archive. Summary impression: Ventricular bigeminy, sinus rate 97, no ST segment elevation or depression noted Imaging Results: Imaging Impressions Chest X-Ray 04/16/18 11:14 Impression: No acute pulmonary disease. ED Course/Re-evaluation: The patient is referred to the ED from Cardiology for workup of a variety of issues. First is hypertension. The patient was noted to be hypertensive in the construction ironworker helper office today and in the ED with initial blood pressure of 190/120. This has improved without intervention in the ED to 160/90. The patient is on a number of medications including Coreg, losartan and hydrochlorothiazide. Patient's EKG does demonstrate ventricular bigeminy. The patient's troponin is normal. Chest x-ray demonstrates no evidence of significant failure. His BNP is also reassuring. I spoke with his primary construction ironworker helper on the phone. Dr. Pompa would like the patient admitted to the hospital for observation this evening and a nuclear stress test. Consultation was made with Internal Medicine. The patient will be admitted by Dr. Nettles. Differential Diagnosis: Differential diagnosis considered includes hypertensive emergency, hypertensive urgency, congestive heart failure, arrhythmia, myocardial infarction, dehydration, metabolic derangement - Data Points Laboratory Results: Laboratory Results 04/16/18 11:10 04/16/18 11:10 04/16/18 04/16/18 04/16/18 11:16 11:10 11:10 WBC 6.29 10^3/uL 10^3/uL (3.80-9.50) RBC 5.56 10^6/uL 10^6/uL (4.40-6.38) Hgb 16.6 g/dL g/dL (13.7-17.5) Hct 47.5 % % (40.0-51.0) MCV 85.4 fL fL (81.5-99.8) MCH 29.9 pg pg (27.9-34.1) MCHC 34.9 g/dL g/dL (32.4-36.7) RDW 13.0 % % (11.5-15.2) Plt Count 242 10^3/uL 10^3/uL (150-400) MPV 9.3 fL fL (8.7-11.7) Neut % (Auto) 55.4 % % (39.3-74.2) Lymph % (Auto) 29.6 % % (15.0-45.0) [place] % (Auto) 10.5 % % (4.5-13.0) Eos % (Auto) 3.2 % % (0.6-7.6) Baso % (Auto) 1.0 % % (0.3-1.7) Nucleat RBC Rel Count 0.0 % % (0.0-0.2) Absolute Neuts (auto) 3.49 10^3/uL 10^3/uL (1.70-6.50) Absolute Lymphs (auto) 1.86 10^3/uL 10^3/uL (1.00-3.00) Absolute Monos (auto) 0.66 10^3/uL 10^3/uL (0.30-0.80) Absolute Eos (auto) 0.20 10^3/uL 10^3/uL (0.03-0.40) Absolute Basos (auto) 0.06 10^3/uL 10^3/uL (0.02-0.10) Absolute Nucleated RBC 0.00 10^3/uL 10^3/uL (0-0.01) Immature Gran % 0.3 % % (0.0-1.1) Immature Gran # 0.02 10^3/uL 10^3/uL (0.00-0.10) Sodium 140 mEq/L mEq/L (135-145) Potassium 4.1 mEq/L mEq/L (3.3-5.0) Chloride 104 mEq/L mEq/L (97-110) Carbon Dioxide 26 mEq/l mEq/l (22-31) Anion Gap 10 mEq/L mEq/L (6-14) BUN 19 mg/dL mg/dL (7-23) Creatinine 0.8 mg/dL mg/dL (0.7-1.3) Estimated GFR > 60 Glucose 97 mg/dL mg/dL (70-100) Calcium 9.8 mg/dL mg/dL (8.5-10.4) POC Troponin I 0.00 ng/mL ng/mL (0.00-0.08) NT-Pro-B Natriuret Pep 198 pg/mL H pg/mL (0-125) Point of Care Test Results: Chemistry 04/16/18 11:16 POC Troponin I 0.00 ng/mL ng/mL (0.00-0.08) Departure - Departure Disposition: [facility] Inpatient Acute Clinical Impression: Hypertension, Palpitations, Dyspnea Condition: Good Referrals: Demetra Daley MD [Primary Care Provider] - As per Instructions
[2018-04-16 11:25] LABS: PLATELET COUNT 242 10^3/uL (150-400)
--- NOTE | 2018-04-16 11:54 | CPEKG ---
Test Reason : OPEN Blood Pressure : / mmHG Vent. Rate : 097 BPM Atrial Rate : 035 BPM P-R Int : 196 ms QRS Dur : 098 ms QT Int : 346 ms P-R-T Axes : 062 017 237 degrees QTc Int : 440 ms Sinus rhythm Ventricular bigeminy Probable left atrial enlargement Nonspecific T abnormalities, lateral leads Confirmed by Lobo Harper ([id number]) on 04/16/2018 11:54:05 AM Referred By: Confirmed By:Lobo Harper
[2018-04-16] MEDS ORDERED: ONDANSETRON 4 MG/2 ML VIAL IVP PRN (14:20)
[2018-04-16] MEDS ORDERED: ONDANSETRON DISINTEGRATING 4 MG TAB PO PRN (14:20)
[2018-04-16] MEDS ORDERED: ACETAMINOPHEN 325 MG TAB PO PRN (14:20)
--- NOTE | 2018-04-16 14:24 | ECHO ---
[email or web address] [address] [address] Main: [phone] Fax: [email or web address] Echocardiogram Name: DEEPTI MARIN MR#: [id number] Study Date: 04/16/2018 Study Time: 12:39 PM Date of : 1945 Age: 72 year(s) Height: 185.4 cm (73 in.) Weight: 108.41 kg (239 lb.) BSA: 2.32 m2 Gender: Male Examination: Echo Indication: Cardiac: dyspnea Image Quality: Adequate Contrast: Requested by: Lobo Harper BP: 178 mmHg/71 mmHg Heart Rate: Rhythm: Indication: Cardiac: dyspnea Procedure Staff Director Of Teenage Activities: Suzanne Corral RDCS Reading Physician: Car Perdue MD Requesting Provider: Conclusions: Normal size left ventricle. Mild concentric LV hypertrophy. Normal global systolic LV function. The ejection fraction is visually estimated to be 55 %. No regional wall motion abnormality. Normal diastolic LV function. Irregular rhythm throughout exam. Normal size right ventricle. Normal RV function. The left atirum is borderline dilated. The right atrium is normal in size. The mitral valve is normal in appearance and function. Mild mitral valve regurgitation is present. The aortic valve is tri-leaflet. Trivial aortic valve regurgitation. No aortic valve stenosis is present. The tricuspid valve is normal in appearance and function. Mild tricuspid regurgitation is present. The pulmonary artery pressure is normal. Right ventricular systolic pressure measures 19mmHg. The pulmonic valve is normal in appearance and function. There is no pulmonic regurgitation seen. The aorta is normal. Normal size aortic root measuring 3.2 cm. Normal size ascending aorta measuring 4.0 cm. The IVC is normal sized. No pericardial effusion. There is pericardial fat. No pleural effusion. A cause for the patient's PVC's is not identified. Patient: DEEPTI MARIN Study Date: 04/16/2018 Page 1 of 3 12:39 PM Measurements: Chambers Valvular Assessment AV/MV Valvular Assessment TV/PV Normal Normal Normal Name Value Range Name Value Range Name Value Range Ao Emiliana (2D): 3.2 cm (1.4 cm-2.6 AV Vmax: 1.45 m/s (1 m/s-1.7 TR Vmax: 1.90 mm/s ( - ) cm) m/s) TR PGmax: 14 mmHg ( - ) IVSd (2D): 1.3 cm (0.6 cm-1.1 AV maxP mmHg ( - ) syst. PAP: 19 mmHg ( - ) cm) AV meanP mmHg ( - ) PV Vmax: 0.54 m/s (0.6 m/s-0.9 LVDd (2D): 4.5 cm (4.2 cm-5.9 LVOT Vmax: 0.89 m/s (0.7 m/s-1.1 m/s) cm) m/s) PV PGmax: 1 mmHg ( - ) LVDs (2D): 3.2 cm (2.1 cm-4 GODWIN (Vmax): 2.6 cm2 ( - ) cm) GODWIN (VTI): 3.0 cm ( - ) LVPWd (2D): 1.3 cm (0.6 cm-1 MV E Vmax: 0.61 m/s ( - ) cm) MV A Vmax: 0.96 m/s ( - ) LVOTd 2.3 cm 2.3 cm mm MV E/A: 0.64 ( - ) LVEF (BP): 58 % (>=55 %) MV PHT: 0.070 s ( - ) Visual EF: 55 % MVA (PHT): 3.1 s ( - ) RVDd(2D): 3.9 cm (1.9 cm-3.8 cmmm) Continued Measurements: Chambers Valvular Assessment AV/MV Valvular Assessment TV/PV Name Value Name Value Name Value LADs: 4.1 cm MV DecTime: 222 m/s CVP (est.): 5 mmHg LADs Lon.1 cm MV E/E' Septal: 13.30 LA Area: 20.6 cm2 MV E/E' Lateral: 7.20 LA Volume: 76 ml LA Volume Index: 32.8 ml/m2 RA Area: 12.7 cm2 Additional Vessels Name Value Ao Ascendin.0 cm Inferior Vena Cava: 1.3 cm Findings: Left Ventricle: Normal size left ventricle. Mild concentric LV hypertrophy. Normal global systolic LV function. The ejection fraction is visually estimated to be 55 %. No regional wall motion abnormality. Normal diastolic LV function. Irregular rhythm throughout exam. Right Ventricle: Normal size right ventricle. Normal RV function. Left Atrium: The left atirum is borderline dilated. Right Atrium: The right atrium is normal in size. Mitral Valve: The mitral valve is normal in appearance and function. Mild mitral valve regurgitation is present. No mitral stenosis is present. Aortic Valve: The aortic valve is tri-leaflet. Trivial aortic valve regurgitation. No aortic valve stenosis is present. Tricuspid Valve: The tricuspid valve is normal in appearance and function. Mild tricuspid regurgitation is present. The pulmonary artery pressure is normal. Right ventricular systolic pressure measures 19mmHg. Pulmonic Valve: The pulmonic valve is normal in appearance and function. There is no pulmonic regurgitation seen. Aorta: Patient: DEEPTI MARIN Study Date: 04/16/2018 Page 2 of 3 12:39 PM The aorta is normal. Normal size aortic root measuring 3.2 cm. Normal size ascending aorta measuring 4.0 cm. IVC: The IVC is normal sized. Pericardium: No pericardial effusion. There is pericardial fat. No pleural effusion. (No Signature Object) Patient: DEEPTI MARIN Study Date: 04/16/2018 Page 3 of 3 12:39 PM [id number]
[2018-04-16] MEDS ORDERED: oxyCODONE IR 5 MG TAB PO PRN (15:28)
[2018-04-16] MEDS ORDERED: NITROGLYCERIN 0.4 MG BTL SL PRN (15:32)
[2018-04-16] MEDS ORDERED: clonazePAM 0.5 MG TAB PO PRN (15:32)
[2018-04-16] MEDS ORDERED: COLCHICINE 0.6 MG CAP/TAB PO PRN (15:32)
--- NOTE | 2018-04-16 15:40 | PDGENHP ---
History and Physical - Chief Complaint Dyspnea, palpitations - History of Present Illness 72 y/o male with history of NJ with stent placement November 2016 presents with intermittent dyspnea, palpitations, and lightheadedness. He has been on a road trip for the past couple of days through [place] and [place]; while he was at a rest stop in [place] (8,500 ft elevation) he became dyspneic which he never experienced before. This immediately resolved when he was at a lower elevation. Unfortunately, the triad of symptoms are intermittent - he continues to experience these symptoms. He reports the symptoms occur at random, denies it occurring during exertion or stress. Denies nausea, fever, chills, chest pains. Past Medical/Surgical History 1. NJ with one stent (November 2016)(reports 6% heart ischemia) 2. HTN 3. Fibromyalgia 4. Right rotator cuff repair 5. GERD 6. DAVID 7. Hypothyroid 8. Uvula Surgery Vital Signs 159/95 73 HR 16 Respirations 95% RA 36.6 degree History Information - Allergies/Home Medication List Allergies/Adverse Reactions: No Known Allergies Allergy (Verified 04/16/18 10:48) Home Medications: Aspirin EC [Aspirin EC 81 mg (*)] 162 mg PO HS 11/24/16 [Last Taken 04/15/18] Cholecalciferol Vit D3 [Vitamin D3 (*)] 2,000 units PO DAILY 11/24/16 [Last Taken 04/16/18] Colchicine [Colchicine (*)] 0.6 - 1.2 mg PO DAILY PRN 11/24/16 [Last Taken 04/09] Herbals/Supplements -Info Only 1 ea PO DAILY 11/24/16 [Last Taken Unknown] Levothyroxine [Synthroid 50 mcg (*)] 50 mcg PO DAILY06 11/24/16 [Last Taken ] clonazePAM [Klonopin (*)] 0.125 mg PO DAILY PRN 11/24/16 [Last Taken 04/12/18] Melatonin [Melatonin 3 MG (*)] 3 mg PO HS 12/09/16 [Last Taken 04/15/18] Baker-3 Fatty Acids [Fish Oil 1000 mg (*)] 2,000 mg PO DAILY 12/09/16 [Last Taken 04/16/18] Carvedilol [Coreg (*)] 25 mg PO BID 04/14/18 [Last Taken 04/16/18] Hydrochlorothiazide [HCTZ (*)] 12.5 mg PO DAILY 04/14/18 [Last Taken 04/16/18] Pravastatin Sodium 20 mg PO HS 04/14/18 [Last Taken 04/15/18] Nitroglycerin [Nitrostat 0.4 mg (*)] 0.4 mg SL Q5M PRN 04/16/18 [Last Taken Unknown] Ofloxacin 0.3% [Ocuflox 0.3%] 1 drops EACHEYE BID 04/16/18 [Last Taken 04/16/18] I have personally reviewed and updated: family history, medical history, social history, surgical history Past Medical History: See HPI list - Surgical History Additional surgical history: See HPI list - Family History Positive for: vascular disease (Mother of PE at age 53 ), father with history of CAD younger than 55, myocardial infarction Additional family history: Father of NJ at age 59 - Social History Smoking Status: Former smoker Alcohol Use: Rarely Drug Use: None Additional social history: Lives at home with spouse Review of Systems Review of Systems: ROS: 10pt was reviewed & negative except for what was stated in HPI & below Constitutional: Reports: no symptoms EENMT: Reports: no symptoms Cardiac: Reports: irregular heart rate, lightheadedness, palpitations Respiratory: Reports: shortness of breath Gastrointestinal: Reports: no symptoms Genitourinary: Reports: no symptoms Muscolosketal: Reports: no symptoms Skin: Reports: no symptoms Neurological: Reports: anxiety, headache Hematologic/Lymphatic: Reports: no symptoms Immunologic/Allergy: Reports: no symptoms Physical Exam Physical Exam: Lab data and imaging reviewed: Trop: Negative EKG: SR, ventricular bigeminy CXR: No acute pulmonary disease Echo: EF 55%, mild LV hypertrophy. Mild mitral valve regurgitation. Left atrial borderline dilated Temp Pulse Resp BP Pulse Ox 36.6 C 79 18 149/96 H 93 04/16/18 10:50 04/16/18 14:53 04/16/18 14:53 04/16/18 14:53 04/16/18 14:53 Constitutional: no apparent distress, appears nourished, not in pain Eyes: PERRL, anicteric sclera, EOMI Ears, Nose, Mouth, Throat: moist mucous membranes, hearing normal, ears appear normal, no oral mucosal ulcers Cardiovascular: regular rate and rhythym, no murmur, rub, or gallop, No edema Peripheral Pulses: 2+: dorsalis-pedis (R) (Radial 2+), dorsalis-pedis (L) ( Radial 2+) Respiratory: no respiratory distress, no rales or rhonchi, clear to auscultation Gastrointestinal: normoactive bowel sounds, soft, non-tender abdomen, no palpable masses Genitourinary: no bladder fullness, no bladder tenderness Skin: warm, normal color, no rashes or abrasions, no fluctuance, no induration, No mottled Musculoskeletal: full muscle strength, no muscle tenderness, normal joint ROM, no joint effusions Neurologic: AAOx3, sensation intact bilaterally, CN II-XII Intact Psychiatric: interacting appropriately, not anxious, not encephalopathic, thought process linear Lymph, Heme, Immunologic: no cervical LAD, no supraclavicular LAD Lab Data & Imaging Review 04/16/18 11:10 04/16/18 11:10 WBC 6.29 10^3/uL (3.80-9.50) 04/16/18 11:10 RBC 5.56 10^6/uL (4.40-6.38) 04/16/18 11:10 Hgb 16.6 g/dL (13.7-17.5) 04/16/18 11:10 Hct 47.5 % (40.0-51.0) 04/16/18 11:10 MCV 85.4 fL (81.5-99.8) 04/16/18 11:10 MCH 29.9 pg (27.9-34.1) 04/16/18 11:10 MCHC 34.9 g/dL (32.4-36.7) 04/16/18 11:10 RDW 13.0 % (11.5-15.2) 04/16/18 11:10 Plt Count 242 10^3/uL (150-400) 04/16/18 11:10 MPV 9.3 fL (8.7-11.7) 04/16/18 11:10 Neut % (Auto) 55.4 % (39.3-74.2) 04/16/18 11:10 Lymph % (Auto) 29.6 % (15.0-45.0) 04/16/18 11:10 Wythe % (Auto) 10.5 % (4.5-13.0) 04/16/18 11:10 Eos % (Auto) 3.2 % (0.6-7.6) 04/16/18 11:10 Baso % (Auto) 1.0 % (0.3-1.7) 04/16/18 11:10 Nucleat RBC Rel Count 0.0 % (0.0-0.2) 04/16/18 11:10 Absolute Neuts (auto) 3.49 10^3/uL (1.70-6.50) 04/16/18 11:10 Absolute Lymphs (auto) 1.86 10^3/uL (1.00-3.00) 04/16/18 11:10 Absolute Monos (auto) 0.66 10^3/uL (0.30-0.80) 04/16/18 11:10 Absolute Eos (auto) 0.20 10^3/uL (0.03-0.40) 04/16/18 11:10 Absolute Basos (auto) 0.06 10^3/uL (0.02-0.10) 04/16/18 11:10 Absolute Nucleated RBC 0.00 10^3/uL (0-0.01) 04/16/18 11:10 Immature Gran % 0.3 % (0.0-1.1) 04/16/18 11:10 Immature Gran # 0.02 10^3/uL (0.00-0.10) 04/16/18 11:10 Sodium 140 mEq/L (135-145) 04/16/18 11:10 Potassium 4.1 mEq/L (3.3-5.0) 04/16/18 11:10 Chloride 104 mEq/L (97-110) 04/16/18 11:10 Carbon Dioxide 26 mEq/l (22-31) 04/16/18 11:10 Anion Gap 10 mEq/L (6-14) 04/16/18 11:10 BUN 19 mg/dL (7-23) 04/16/18 11:10 Creatinine 0.8 mg/dL (0.7-1.3) 04/16/18 11:10 Estimated GFR > 60 04/16/18 11:10 Glucose 97 mg/dL (70-100) 04/16/18 11:10 Calcium 9.8 mg/dL (8.5-10.4) 04/16/18 11:10 POC Troponin I 0.00 ng/mL (0.00-0.08) 04/16/18 11:16 NT-Pro-B Natriuret Pep 198 pg/mL (0-125) H 04/16/18 11:10 Assessment & Plan Plan: 72 y/o male with history of NJ w/ stent placement presents with intermittent symptoms of dyspnea, palpitations and lightheadedness. He was see in the ED on 04/14 with same presenting symptoms; d/c'ed and encouraged to f/u with cards on 04/15 or to return if symptoms worsen. Cardiology clinic sent pt back to ED today for admittance for further testing. EKG is SR, ventricular bigeminy and ECHO with EF 55%, trop neg. 1. Hypertensive urgency: BP elevated. Tele monitored. Continue home medications for BP and continue to monitor. 2. Palpitations: Tele monitored. Cards consulted and aware. Possible nuclear stress test tomorrow. Cycle trops. 3. Dyspnea: CXR no acute pulmonary disease. Pulmonary hygiene while in the hospital. I suspect this is related to his heart. 4. Fibromyalgia: continue to monitor. 5. Hypothyroid: stable. TSH 3.2 Free T4 1.07. Continue home medications. Diet: Cardiac, NPO at midnight tonight VTE ppx: Lovenox Subq Code: Full Dispo: Admit to inpatient
--- NOTE | 2018-04-16 15:55 | ASMTCMCOM ---
CM Note CM Note Notes: Pt's chart reviewed for d/c planning. Pt is a 72 y/o male presented to the ED for an evaluation of dyspnea, palpitations and headache. These symptoms have been occuring intermittenly over the last 4 days. He lives with his and is retired. OT/PT have not been ordered. Anticipate no CM needs; CM will follow for changes. D/C Plan: TBD Date Signed: 04/16/2018 03:54 PM Electronically Signed By:Maria L Walker
--- NOTE | 2018-04-16 16:02 | HOSPPROG ---
Hospitalist Progress Note Assessment/Plan: I have seen and evaluated patient independently and agree with plan outlined by Denice MALDONADO. Objective: Vital Signs Temp Pulse Resp BP Pulse Ox 36.9 C 85 16 149/97 H 94 04/16/18 15:40 04/16/18 15:40 04/16/18 15:40 04/16/18 15:40 04/16/18 15:40 ICD10 Worksheet Patient Problems: Problems Problem Status Onset Dyspnea Acute Hypertension Acute Palpitations Acute Acute coronary syndrome Acute Chest pain Acute Chest pain Acute Coronary artery disease Acute NSTEMI (non-ST elevated myocardial infarction) Acute Status post insertion of drug eluting coronary artery stent Acute Ventricular bigeminy Acute
[2018-04-16] MEDS: PRAVASTATIN SODIUM 20 MG TAB PO SCH (18:07)
[2018-04-16] MEDS: CARVEDILOL 25 MG TAB PO SCH (18:08)
[2018-04-16] MEDS: LOSARTAN POTASSIUM 50 MG TAB PO SCH (18:08)
[2018-04-16] MEDS: ASPIRIN EC 81 MG TAB PO SCH ×2 (18:08→21:26)
[2018-04-16] MEDS ORDERED: OFLOXACIN 0.3% 5ML OPHT DROPS EACHEYE SCH (21:00)
[2018-04-16] MEDS: MELATONIN 3 MG TAB PO SCH (21:26)
[2018-04-17] MEDS: LEVOTHYROXINE 50 MCG TAB PO SCH (06:38)
[2018-04-17] MEDS: PANTOPRAZOLE SODIUM 40 MG TAB PO SCH (08:26)
[2018-04-17] MEDS: ENOXAPARIN 40 MG/0.4 ML SYR SC SCH (08:26)
[2018-04-17] MEDS: HYDROCHLOROTHIAZIDE 12.5 MG CAP PO SCH (08:27)
[2018-04-17] MEDS: CHOLECALCIFEROL VIT D3 1,000 UNITS TAB PO SCH (08:27)
[2018-04-17] MEDS: OMEGA-3 FATTY ACIDS 1,000 MG CAP PO SCH (08:27)
[2018-04-17] MEDS: CARVEDILOL 25 MG TAB PO SCH ×2 (08:27→17:50)
[2018-04-17] MEDS ORDERED: Herbals/Supplements -Info Only PO SCH (09:00)
[2018-04-17] MEDS ORDERED: IOPAMIDOL (ISOVUE 370) 100 ML BTL IV ONE (11:32)
[2018-04-17] MEDS: PRAVASTATIN SODIUM 20 MG TAB PO SCH (17:50)
[2018-04-17] MEDS: LOSARTAN POTASSIUM 50 MG TAB PO SCH (17:50)
[2018-04-17] MEDS: ASPIRIN EC 81 MG TAB PO SCH ×2 (17:50→20:58)
--- NOTE | 2018-04-17 17:52 | HOSPPROG ---
Hospitalist Progress Note Assessment/Plan: DIAGNOSES: * dyspnea, palpitations * frequent ventricular ectopy * chest pain at rest, described as a burning sensation * uncontrolled HTN * recent travel * hx of TX, CAD with stent, manifest with symptoms quite similar to the present symptoms * anxiety disorder The patient has ruled out for acute TX. He is having quite a bit of ectopy, and it is aggravated by walking in the [place], raising further suspicion for recurrent CAD. His d dimer was elevated but CT shows no PE. PLANS: -I reviewed in detail with Treva Ngo of cardiology -plan on stress test with nuclear imaging as he is having too much ectopy to be able to interpret his EKG during exercise stress testing; however, supplier of nuclear material for imaging from [place] is unable to get a dose to us today, so he will be staying overnight to await for dose/test in am. -continue Beta cynthia; dose is fairly high now, and especially given his HR not felt he would benefit from higher dosing -if HTN persists, consider adding Ca cynthia or ACEI SUBJ: still having very frequent episodes of lightheadednss and dyspnea, and these are associated with significant ventricular ectpy on monitor no nausea no fever sxs OBJ: vitals: BPs still high but better thanb yest; pulse is low in upper 50s, no fever card monitor: very frequent multifocal pvcs, also some periods of bigeminy exam: alert oriented somewhat anxious resps relaxed lungs clear heart regular during my exam no edema I did have him walk in hallway, and this exacerbated ventricular ectopy very noticably Lab: troponins all nl Echocardiogram: no new wall motion abnormalities, no significant valve issues, EF 55, no PHTN Imaging: I reviewed images of CT chest, no sign of PE, no chf, no mass or infiltrate Objective: Vital Signs Temp Pulse Resp BP Pulse Ox 36.6 C 74 18 132/76 H 93 04/17/18 15:48 04/17/18 15:48 04/17/18 15:48 04/17/18 15:48 04/17/18 15:48 04/16/18 04/17/18 04/18/18 06:59 06:59 06:59 Intake Total 550 600 Output Total 150 Balance 400 600 - Time Spent With Patient Time Spent with Patient: greater than 35 minutes Time Spent with Patient: Greater than 35 minutes spent on this patients care, greater than 50% of time spent counseling, educating, and coordinating care regarding the above mentioned plan. ICD10 Worksheet Patient Problems: Problems Problem Status Onset Dyspnea Acute Hypertension Acute Palpitations Acute Acute coronary syndrome Acute Chest pain Acute Chest pain Acute Coronary artery disease Acute NSTEMI (non-ST elevated myocardial infarction) Acute Status post insertion of drug eluting coronary artery stent Acute Ventricular bigeminy Acute
[2018-04-17] MEDS ORDERED: ZOLPIDEM TARTRATE 5 MG TAB PO PRN (19:12)
[2018-04-17] MEDS: MELATONIN 3 MG TAB PO SCH (20:58)
[2018-04-18] MEDS: LEVOTHYROXINE 50 MCG TAB PO SCH (07:11)
[2018-04-18] MEDS ORDERED: REGADENOSON 0.4 MG/5 ML SYR IVP ONE (09:23)
[2018-04-18] MEDS: CHOLECALCIFEROL VIT D3 1,000 UNITS TAB PO SCH (10:26)
[2018-04-18] MEDS: HYDROCHLOROTHIAZIDE 12.5 MG CAP PO SCH (10:26)
[2018-04-18] MEDS: OMEGA-3 FATTY ACIDS 1,000 MG CAP PO SCH (10:26)
[2018-04-18] MEDS: PANTOPRAZOLE SODIUM 40 MG TAB PO SCH (10:27)
[2018-04-18] MEDS: CARVEDILOL 25 MG TAB PO SCH (10:27)
--- NOTE | 2018-04-18 11:33 | CPR ---
DATE OF PROCEDURE: 04/18/2018 PROCEDURE: Lexiscan nuclear stress test INDICATION: The patient is a 72-year-old male with history of coronary artery disease, hypertension, and hyperlipidemia. He was stented approximately 18 months ago. He presented to the hospital after driving back to [place] and experiencing significant shortness of breath at high altitude. This wa s associated with palpitations, as well as head pressure. On admission to the hospital, his blood pr essure was significantly elevated. He continues to have intermittent episodes of palpitations, which correlate with PVCs occurring in bigeminy. He was ruled out for a pulmonary embolus with a pulmonar y CT angiogram. PROCEDURE IN DETAIL: Consent was obtained and the patient was placed on continuous telemetry. His r esting EKG reveals normal sinus rhythm with PVCs occurring in trigeminy. These appear to be RVOT PVC s. They are unifocal. He has nonspecific ST, T-wave changes. There is also evidence of a long WA i nterval of 213, indicating a first-degree AV block. The patient was infused with Lexiscan and complained of flushing. He remained in sinus rhythm, but h is PVCs became more frequent, occurring in bigeminy. His blood pressure at rest was 140/90 and incre ased to 160/90 with infusion. It returned to baseline 4 minutes into the recovery at 148/80. He was given caffeine in the recovery phase with resolution of his symptoms. PLAN: Await nuclear images. Consider outpatient 24-hour Holter monitor to quantify how frequent his PVCs are occurring. If he continues to have PVCs despite good control of his blood pressure, consid er EP consult for ablation. /[id number]/MODL
[2018-04-18] MEDS: ENOXAPARIN 40 MG/0.4 ML SYR SC SCH (12:12)
--- NOTE | 2018-04-18 14:18 | PDDCSUM ---
Discharge Summary Discharge Summary: DISCHARGE DIAGNOSES: * dyspnea, resolved * frequent multifocal PVCs and bigeminy * dizziness, resolved PROCEDURES: CT angio of chest with no evidence of PE or other concerning findings Stress test with myocardial perfusion imaging showing no evidence of ischemia, prior known NM was visible, preserved ejection fraction HOSPITAL COURSE SUMMARY: This patient came to the hospital complaining of a sensation of dizziness along with palpitations. He also complained that he had had some dyspnea while at [facility] at 8000 ft. He has not had any dyspnea here in [place] and is not dyspneic during his admission here. He has not had any pressure or symptoms but complains of a "hot air" discomfort in the chest over the last few days before admission that reminds him of the discomfort he had before his previous myocardial infarction. Upon admission the patient had frequent PVCs mostly uniform but occasionally multifocal, with periods of ventricular bigeminy. He also had hypertension uncontrolled despite ongoing Coreg losartan and hydrochlorothiazide. He is not hypoxemic vital Signs are all good other than hypertension. There is no evidence of heart failure pneumonia or other infection or ischemia. Pulmonary embolism was ruled out with CT scan of the chest. Troponins were negative. Echocardiogram was unrevealing for any significant new abnormality. Because of the ongoing PVCs it was felt that they were high enough in number frequency that they would interfere with EKG interpretation on a treadmill. He therefore underwent stress testing with nuclear imaging which showed no evidence of reversible ischemia, with his prior myocardial infarction visible. He did have preserved ejection fraction. It is uncertain what the cause of his increased PVCs or his dyspnea is but he is walking in the hallways here without any dyspnea on room air. The patient's blood pressure has been well controlled over the last several months until about a week before admission here. He denies using any decongestants or alcohol. He has been fully compliant with his daily medications as far as he can tell and his concurs. At this point because his blood pressure is uncontrolled it is felt that getting better blood pressure control will be important in might potentially decrease the PVCs. He is on a high enough dose of Coreg that with a pulse in the 60 range more beta-blockers not tenable. He is on 100 of losartan and had hypotension with higher doses in the past so that will not be increased. His hydrochlorothiazide is at 12.5 and he did not tolerate higher dose. At this point is elected to changes hydrochlorothiazide to chlorthalidone. The patient is felt stable for discharge PENDING TEST RESULTS: None MEDICATION CHANGES: Hydrochlorothiazide discontinued Chlorthalidone 25 mg daily ordered and prescribed FOLLOW-UP PLAN: In Cardiology Clinic next week Greater than 35 minutes bedside and care coordination time today
[2018-04-18 14:53] VITALS: BP 151/84
--- NOTE | 2018-04-18 14:57 | ASMTLACE ---
LACE Length of stay for Answers: 2 days current admission Acuity / Level of Answers: No Care: Did the patient have an inpatient admission? Comorbidities - select Answers: Other Notes: cardiac disease all that apply # of Emergency department Answers: 1-2 visits in the last 6 months Score: 4 Date Signed: 04/18/2018 02:57 PM Electronically Signed By:Claudia Martell RN
--- NOTE | 2018-04-18 15:00 | ASDISCHSUM ---
Discharge Information Plan Status:Home with No Needs Medically Cleared to Leave:04/17/2018 Discharge Date:04/17/2018 CM D/C Disposition:Home, Routine, Self-Care ADT D/C Disposition:Home, Routine, Self-Care Projected Discharge Date:04/17/2018 Transportation at D/C: Discharge Delay Reason: Follow-Up Date:04/17/2018 Discharge Slot: Final Diagnosis: Placement Information Patient Contact Information Contact Name:GABE Relationship: Address:[address] Home Phone: City:[place] Alternate Phone: State/Zip Code:[place] [address] Email: Financial Information Financial Class:Medicare Primary Plan Desc:MEDICARE OUTPATIENT Primary Plan Number:[id number] Secondary Plan Desc:[employer] Secondary Plan Number:[id number] Assessment Information LACE LACE Length of stay for Answers: 2 days current admission Acuity / Level of Answers: No Care: Did the patient have an inpatient admission? Comorbidities - select Answers: Other Notes: cardiac disease all that apply # of Emergency department Answers: 1-2 visits in the last 6 months Score: 4 Date Signed: 04/18/2018 02:57 PM Electronically Signed By:Claudia Martell RN [facility] CM Progress Note CM Note CM Note Notes: Pt's chart reviewed for d/c planning. Pt is a 72 y/o male presented to the ED for an evaluation of dyspnea, palpitations and headache. These symptoms have been occuring intermittenly over the last 4 days. He lives with his and is retired. OT/PT have not been ordered. Anticipate no CM needs; CM will follow for changes. D/C Plan: TBD Date Signed: 04/16/2018 03:54 PM Electronically Signed By:Maria L Walker Case Management Discharge Plan Note Case Management Discharge Discharge Order Complete? Answers: Yes Patient to Obtain Answers: via Family Medications Discharge Comments Notes: 04/18/2018 Case Management Note Pt discharged home with follow up as directed. There were no identified case management d/c needs. Date Signed: 04/18/2018 02:59 PM Electronically Signed By:Claudia Martell RN Intervention Information Intervention Type:*TUAN-Signed Date of Service:04/17/2018 10:20 AM Patient Type:Observation Staff Member:Fuad Mederos Hours: Discipline: Severity: Comment:
== END 2018-04-18 15:15 | disposition home or self-care (01) ==
LOC: F2W 15:33 → UNDODISOB 04-17 10:53
PROVIDERS: ADMIT Internal Medicine; ATTEND Internal Medicine
DX: R06.00 Dyspnea, unspecified (principal); I49.3 Ventricular premature depolarization; R00.8 Other abnormalities of heart beat; I16.0 Hypertensive urgency; R42 Dizziness and giddiness; I25.2 Old myocardial infarction; G47.33 Obstructive sleep apnea (adult) (pediatric); M79.7 Fibromyalgia; K21.9 Gastro-esophageal reflux disease without esophagitis; E03.9 Hypothyroidism, unspecified; E78.5 Hyperlipidemia, unspecified; Z87.891 Personal history of nicotine dependence; Z82.49 Family history of ischemic heart disease and other diseases of the circulatory system; Z95.5 Presence of coronary angioplasty implant and graft
CPT/HCPCS: 71046; 71275; 78452; 93005; 93017; 93306; 96372; 99285; A9500; G0378; J1650; J2785; Q9967; 84484-PO